=== PATIENT | male | born 1930 | race Caucasian/White ===

== ENCOUNTER 2018-09-23 18:30 | Observation (INO) | payer MEDICARE, MEDICAID ==
[2018-09-23] MEDS ORDERED: hydrALAZINE 20 MG/ML VIAL ONE (18:56)
[2018-09-23 19:06] LABS: Bilirubin Negative (Negative); Blood, Urine Negative (Negative); Clarity CLEAR (Clear); Glucose, Urine (Dipstick) Negative (Negative); Leukocyte Negative (Negative); Nitrite Negative (Negative); Protein, Urine (Dipstick) Negative (Neg-Trace); Specific Gravity, Urine 1.012 (1.002-1.036)
[2018-09-23] MEDS ORDERED: Ondansetron PF 4 MG/2 ML Vial IVP PRN (19:29)
[2018-09-23] MEDS ORDERED: Acetaminophen 650 MG Suppository PR PRN (19:29)
[2018-09-23] MEDS ORDERED: Acetaminophen 325 MG TAB PO PRN (19:29)
[2018-09-23] MEDS ORDERED: Ondansetron ODT 4 MG TAB PO PRN (19:29)
[2018-09-23] MEDS ORDERED: Famotidine/PF 20 mg/2ml Vial SLOW IVP SCH (21:00)
[2018-09-23] MEDS ORDERED: Montelukast Sodium 10 mg Tablet PO SCH (23:00)
[2018-09-23] MEDS ORDERED: Ubidecarenone 50 MG CAP PO SCH (23:00)
[2018-09-23] MEDS ORDERED: Famotidine 20 MG TAB PO SCH (23:00)
[2018-09-23] MEDS ORDERED: Atorvastatin Calcium 20 MG TAB PO SCH (23:00)
[2018-09-23] MEDS: Polyethylene Glycol OPTH DROP 15 ML BOT EA EYE PRN (23:02)
[2018-09-23] MEDS: Sodium Chloride 0.9% 1,000 ML IV SCH (23:11)
[2018-09-24 01:17] LABS: Troponin I Less than 0.010 ng/mL (< 0.028)
[2018-09-24] MEDS ORDERED: Levothyroxine Sodium 75 MCG TAB PO SCH (06:00)
[2018-09-24 06:04] LABS: Anion Gap 10 mmol/L (10-20); BUN (Urea Nitrogen) 13 mg/dL (8.4-25.7); Calc. Creatinine Clearance 71 mL/min (70-130); Calcium 9.1 mg/dL (7.8-10.44); Carbon Dioxide 27 mmol/L (23-31); Chloride 104 mmol/L (98-107); Estimated GFR-MDRD Greater than 90; Glucose 99 mg/dL (83-110); Potassium 3.6 mmol/L (3.5-5.1); Sodium 137 mmol/L (136-145)
[2018-09-24 06:21] LABS: #Basophils 0.1 thou/uL (0.0-0.2); #Eosinphils 0.1 thou/uL (0.0-0.7); #Lymphocytes 1.9 thou/uL (1.20-3.40); #Monocytes 0.6 thou/uL (0.11-0.59); #Neutrophils 2.8 thou/uL (1.40-6.50); %Basophils 1.1 % (0.0-1.0); %Eosinophils 2.5 % (0.0-10.0); %Lymphocytes 35.1 % (21.0-51.0); %Monocytes 11.1 % (0.0-10.0); %Neutrophils 50.1 % (42.0-75.0); Hemoglobin 12.3 g/dL (14.0-18.0); MDiff Complete? YES; Macrocytosis SLIGHT = 6-15 cells (100X) (0-5/hpf); Mean Corpuscular HGB CONC 32.4 g/dL (32.0-36.0); Mean Corpuscular Hemoglobin 35.5 pg (27.0-31.0); Mean Platelet Volume 8.5 fL (7.4-10.4); Platelet Count 139 thou/uL (130-400); RBC Distribution Width 13.1 % (11.5-14.5); Red Blood Cell (RBC) Count 3.46 mill/uL (4.70-6.10); White Blood Cell (WBC) Count 5.5 thou/uL (4.8-10.8)
[2018-09-24] MEDS: Polyethylene Glycol OPTH DROP 15 ML BOT EA EYE PRN (08:44)
[2018-09-24] MEDS ORDERED: Ubidecarenone 50 MG CAP PO SCH (09:00)
[2018-09-24] MEDS ORDERED: Citalopram 20 MG TAB PO SCH (09:00)
[2018-09-24] MEDS ORDERED: Famotidine 20 MG TAB PO SCH (09:00)
[2018-09-24] MEDS ORDERED: Aspirin 325 MG TAB PO SCH (09:00)
--- NOTE | 2018-09-24 09:06 | HP ---
REASON FOR ADMISSION: Vasovagal with near syncope. HISTORY OF PRESENT ILLNESS: Mr. Gaitan is a very pleasant 87-year-old man who presents after having what sounds like a vasovagal episode while sitting on the toilet causing a near syncopal episode. He reports feeling well in himself and recalls walking to the bathroom without any difficulty. Denies experiencing any shortness of breath, chest pain, or dizziness. He recalls sitting in the toilet to have bowel movement and then suddenly felt himself like falling forward and hitting the right side of his head on the floor. He sustained abrasions to the right side of his forehead and a laceration to the right ear. The patient denies any loss of consciousness and states he called out for help. He was taken to [facility] where he apparently complained of mild nausea, neck and back pain without any vomiting or headaches. The laceration to the right ear was repaired by the ED physician. The patient underwent investigations including an MRI of the brain, which demonstrated no acute intracranial abnormalities. He had a cervical spine CT done as well showing no acute fractures. He was noted to have degenerative arthritic type changes. The patient also underwent a chest x-ray which showed no acute cardiopulmonary process. He was transferred here for further investigation. The patient states he has been well doing for himself in recent days. States this has never happened before. Denies having any feelings of dizziness or lightheadedness whenever he stands or walks. Denies having any chest pain, palpitations, or shortness of breath. No abdominal pain or cramping. Has not had any recent colds, fevers, or chills. No cough or hemoptysis. No urinary symptoms. No bowel changes. All other review of systems is negative. The patient states he has been under a lot of stress recently due to having to place his in a snf. He states he had to be placed on Ativan p.r.n. by his primary care physician due to anxiety. PAST MEDICAL HISTORY: 1. Prostatitis. 2. Atrial fibrillation. 3. GERD. 4. Hyperlipidemia. 5. High cholesterol. 6. Coronary artery disease. 7. Hypertension. 8. CABG x5. 9. Pacemaker. 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 11. Depression. 12. Anxiety. The patient does not recall when exactly he had his last echo. He sees Dr. Werner regularly and states his appointment had been in the last 8 months to a year. PAST SURGICAL HISTORY: 1. Hemorrhoids. 2. Right carotid stent. 3. Cholecystectomy. 4. Coronary artery bypass graft x5. 5. Pacemaker placement. SOCIAL HISTORY: The patient denies any alcohol use or tobacco use. Denies any illicit drug use. He is totally independent. ALLERGIES: 1. CIPRO. 2. CLINDAMYCIN. 3. COMPAZINE. 4. ERYTHROMYCIN. 5. IODINE AND IODIDE-CONTAINING PRODUCTS. 6. PENICILLIN. 7. SULFA. CURRENT MEDICATIONS: 1. Coenzyme Q10. 2. Protonix. 3. Zofran. 4. Aspirin. 5. Singulair. 6. Ativan. 7. Synthroid. 8. DuoNeb. 9. Flonase. 10. Vitamin B12. 11. Celexa. 12. Lipitor. 13. Tylenol regular strength. PHYSICAL EXAMINATION: GENERAL: The patient appears well developed, well nourished, and is in no acute distress. He is resting comfortably on the stretcher. HEENT/NECK: Noted to have abrasions on the right side of his forehead and cheek. No bone deformities. No swelling or hematoma. He has a laceration to the right ear, involving the auricle. No discharge from either ear. No hearing disturbances. Pupils are equal, round, and reactive to light. Sclerae without icterus. Extraocular movements are intact and normal. No nystagmus present. Neck is supple. Mild discomfort with palpation of the cervical spine. No significant tenderness. No bone deformity. No point tenderness. Full range of motion. Oropharynx is clear; however, mucosa is dry. No sores. No injury or bleeding to his teeth or gums. CARDIAC: Regular rate and rhythm. No chest wall tenderness or deformity. LUNGS: Clear to auscultation bilaterally without any wheezes, rales, or rhonchi. ABDOMEN: Soft, nontender, nondistended. Normoactive bowel sounds present. EXTREMITIES: No lower leg edema or swelling. No calf tenderness. NEUROLOGIC: Alert and oriented x3. SKIN: Without rash or jaundice. LABORATORY DATA: White blood count 5.2, hemoglobin 12.3, hematocrit 38.8, and platelets 123. Sodium 137, potassium 3.8, chloride 100, carbon dioxide 29, anion gap 12, BUN 17, creatinine 1.03, GFR 69, glucose 104, calcium 9.2, total bilirubin 0.6, AST 15, ALT less than 7, alkaline phosphatase 41. Troponin I 0.016. BNP 459. Albumin 4.9. Urinalysis negative. IMAGING DATA: As mentioned above in the HPI. IMPRESSION AND PLAN: Mr. Gaitan is a very pleasant 87-year-old man who is being admitted for management of the followin. Presyncope. The patient may have possibly had a vasovagal episode as this occurred suddenly when he was bearing down to have a bowel movement. He had no preceding symptoms and has had no symptoms since. He did not have loss of consciousness. 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 We will obtain a printout from pacemaker. The patient does have an elevated BNP from baseline. No signs of fluid overload or edema. He does not recall when his last echo was and feels it may have been in the last 8 months to year. Repeat echo has been requested. We will obtain results of the most recent echo which may have been done in clinic with Dr. Werner who is his denial resolution specialist. Last echo on file is from November 2015, at which time he had a normal ejection fraction of 55% to 60% with mild mitral regurgitation/tricuspid regurgitation and mild aortic stenosis/aortic regurgitation . A very small pericardial effusion noted at that time. We will continue to monitor patient and continue to trend troponins. Orthostatic blood pressures have been requested. 2. Head injury. Continue to monitor. No loss of consciousness or vomiting. No headaches. No focal neurology. CT brain was negative for acute intracranial abnormality. 3. Hypothyroidism. Resume home medication. Check TSH level with morning labs. 4. Gastrointestinal prophylaxis. 5. Deep venous thrombosis prophylaxis with mechanical SCDs. 6. Code status: DNAR. His surrogate decision maker is his son, Rich Gaitan. The patient's case was discussed with Dr. Anaya who agrees with plan of care as described above. Job ID: [id number] MTDD
[2018-09-24 12:55] VITALS: BMI 23.1
[2018-09-24] MEDS: Sodium Chloride 0.9% 1,000 ML IV SCH (13:35)
--- NOTE | 2018-09-24 15:50 | PDOC.PN ---
- Subjective Encounter Start Date: 09/24/18 Encounter Start Time: 15:49 Patient lying in bed he denies chest pain, palpitations, shortness of breath. Orthostatic vitals are positive at this time. Echo results pending - Objective Resuscitation Status - Order Detail: 09/23/18 19:29 Resuscitation Status Routine Co-Sign Provider: Resuscitation Status: DNAR: NO Resuscitation Discussed with: Patient MAR Reviewed: Yes Vital Signs & Weight: Vital Signs (12 hours) Temp Pulse Pulse Pulse Resp BP BP 09/24/18 13:20 80 134/70 09/24/18 12:03 09/24/18 11:43 97.7 F 84 18 09/24/18 11:10 78 88 161/72 H 164/82 H 09/24/18 07:02 97.6 F 73 20 09/24/18 04:29 97.5 F L 71 22 H BP BP BP BP Pulse Ox Pulse Ox 09/24/18 13:20 09/24/18 12:03 179/71 H 148/63 H 140/64 09/24/18 11:43 98 09/24/18 11:10 96 09/24/18 07:02 156/70 H 95 09/24/18 04:29 145/65 H 96 Weight Admit Weight 151 lb 8 oz Weight 152 lb 4.8 oz I&O: 09/23/18 09/24/18 09/25/18 06:59 06:59 06:59 Intake Total 538 600 Output Total 650 150 Balance -112 450 Result Diagrams: 09/24/18 04:54 09/24/18 04:54 Radiology Reviewed by me: Yes EKG Reviewed by me: Yes Phys Exam - Physical Examination Constitutional: NAD HEENT: moist MMs, oral pharynx no lesions Neck: supple Respiratory: no wheezing, clear to auscultation bilateral Cardiovascular: RRR Gastrointestinal: soft, no distention, positive bowel sounds Musculoskeletal: no edema, pulses present Neurological: normal sensation, moves all 4 limbs Lymphatic: no nodes Psychiatric: normal affect, A&O x 3 Skin: cap refill <2 seconds Dx/Plan (1) Orthostatic hypotension Code(s): I95.1 - ORTHOSTATIC HYPOTENSION Status: Acute (2) Hypothyroid Code(s): E03.9 - HYPOTHYROIDISM, UNSPECIFIED Status: Acute (3) Near syncope Status: Acute (4) CAD (coronary artery disease) Code(s): I25.10 - ATHSCL HEART DISEASE OF [place] CORONARY ARTERY W/O ANG PCTRS Status: Chronic (5) HTN (hypertension) Code(s): I10 - ESSENTIAL (PRIMARY) HYPERTENSION Status: Chronic (6) Status post biventricular pacemaker Code(s): Z95.0 - PRESENCE OF CARDIAC PACEMAKER Status: Chronic - Plan cont current plan of care, PT/OT * Orthostatic vitals positive, continue gentle hydration * Echo results pending * Continue current medical management * T4 within normal limits, continue home synthroid * PT recommend discharge home with no further need for PT * If echo normal, patient can likely discharge home
[2018-09-24 16:09] VITALS: BP 136/68; TEMP 98.5
[2018-09-24] MEDS ORDERED: Montelukast Sodium 10 mg Tablet PO SCH (21:00)
[2018-09-24] MEDS ORDERED: Atorvastatin Calcium 20 MG TAB PO SCH (21:00)
== END 2018-09-24 18:27 | disposition home or self-care (01) ==
LOC: ERS 18:30 → 2SW 21:50
PROVIDERS: ADMIT Emergency Medicine; ATTEND Emergency Medicine
DX: R55 Syncope and collapse (principal); F32.9 Major depressive disorder, single episode, unspecified; F41.8 Other specified anxiety disorders; E78.5 Hyperlipidemia, unspecified; E03.9 Hypothyroidism, unspecified; E78.00 Pure hypercholesterolemia, unspecified; K21.9 Gastro-esophageal reflux disease without esophagitis; I48.91 Unspecified atrial fibrillation; N41.9 Inflammatory disease of prostate, unspecified; I25.10 Atherosclerotic heart disease of native coronary artery without angina pectoris; I10 Essential (primary) hypertension; I25.2 Old myocardial infarction; Z79.899 Other long term (current) drug therapy; Z79.82 Long term (current) use of aspirin; Z79.51 Long term (current) use of inhaled steroids; Z88.0 Allergy status to penicillin; Z88.1 Allergy status to other antibiotic agents; Z88.2 Allergy status to sulfonamides; Z88.8 Allergy status to other drugs, medicaments and biological substances; Z91.041 Radiographic dye allergy status; Z95.0 Presence of cardiac pacemaker; Z95.1 Presence of aortocoronary bypass graft
CPT/HCPCS: 80048; 81003; 82274; 84439; 84443; 84484 ×2; 85025; 93306; 96361 ×2; 96374; 97116; 97139 ×3; 99285; G0378 ×2; 36415; J0360

== ENCOUNTER 2020-02-04 18:18 | Inpatient (IN) | payer MEDICARE, MEDICAID, OTHER ==
--- NOTE | 2020-02-04 21:24 | PDOC.HHP ---
Hospitalist HPI - History of Present Illness shortness of breath History of Present Illness: Patient is an 89 year old male with PMH HLD, CAD, HTN, 5v CABG, pacemaker, hypothyroidism transferred from [facility] for shortness of breath. Patient went to PCP after several days of worsening shortness of breath and found to be hypoxic in 80s, sent to ED for further evaluation, there found to have overload w/ crackles on physical exam, elevated BNP, edema on x ray. Vitals were hypertensive and tachypneic, EKG no STEMI w/ nonspecific T wave changes, patient was given lasix, nitropatch and transferred for further evaluation and care. patient denies chest pain, palpitations, edema. never had these kinds of symptoms before. 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 most recent echo in chart reviewed from 2019, ef 55% w/ some mild-moderate valve disease. he already feels better after lasix at outside hospital. Hospitalist ROS - Review of Systems Constitutional: denies: fever, chills, sweats, weakness, malaise, other Eyes: denies: pain, vision change, conjunctivae inflammation, eyelid inflammation, redness, other ENT: denies: ear pain, ear discharge, nose pain, nose discharge, nose congestion , mouth pain, mouth swelling, throat pain, throat swelling, other Respiratory: reports: shortness of breath, SOB with excertion. denies: cough, dry, hemoptysis, pleuritic pain, sputum, wheezing, other Cardiovascular: denies: chest pain, palpitations, orthopnea, paroxysmal noc. dyspnea, edema, light headedness, other Gastrointestinal: denies: nausea, vomiting, abdominal pain, diarrhea, constipation, melena, hematochezia, other Genitourinary: denies: dysuria, frequency, incontinence, hematuria, retention, other Musculoskeletal: denies: neck pain, shoulder pain, arm pain, back pain, hand pain, leg pain, foot pain, other Skin: denies: rash, lesions, armani, bruising, other Neurological: denies: weakness, numbness, incoordination, change in speech, confusion, seizures, other All other systems reviewed; all pertinent +/- noted in HPI/Subj - Medication Medications: reviewed, see transfer documents for list Hospitalist History - Past Medical History Other Medical History: HLD, CAD, HTN, 5v CABG, pacemaker, hypothyroidism - Past Surgical History Other Surgical History: appendectomy, hemorrhoid surgery, carotid stent, cholecystectomy, CABG x 5v, pacemaker - Family History Family History: reports: no pertinent history - Social History Smoking Status: Former smoker - Exam General Appearance: NAD, awake alert Eye: PERRL, anicteric sclera ENT: normocephalic atraumatic, no oropharyngeal lesions, moist mucosa Neck: supple, symmetric, no JVD, no thyromegaly, no lymphadenopathy, no carotid bruit Heart: RRR, no murmur, no gallops, no rubs, normal peripheral pulses Respiratory: CTAB, normal chest expansion, no tachypnea, normal percussion Respiratory - other findings: dependant crackles Gastrointestinal: soft, non-tender, non-distended, normal bowel sounds, no palpable masses, no hepatomegaly, no splenomegaly, no bruit Extremities: no cyanosis, no clubbing, no edema Skin: normal turgor, no lesions, no rashes Neurological: cranial nerve grossly intact, normal sensation to touch, no weakness, no focal deficits, no new deficit Musculoskeletal: normal tone, normal strength, no muscle wasting Psychiatric: normal affect, normal behavior, A&O x 3 Hospitalist Results - Labs Additional comment: Vital signs, labs, imaging reports, outside documents, old echo reports reviewed CXR: impression: mild decompensated CHF Echo from 2018 w/ ef 55% mild-moderate valve disease Hospitalist H&P A/P - Plan Plan: Patient is an 89 year old male with PMH HLD, CAD, HTN, 5v CABG, pacemaker, hypothyroidism transferred from [facility] for shortness of breath. # acute diastolic CHF - first time patient experiencing significant CHF symptoms, most recent echo in chart reviewed from 2018, ef 55% w/ some mild- moderate valve disease - admit to telemetry - consult cardiology - continue lasix, asa, statin - I/Os # history of HLD, CAD, CABG, HTN, pacemaker - continue home meds # hypothyroidism - continue synthroig DVT/GI ppx
[2020-02-04] MEDS ORDERED: HYDROcodone/Acetaminophen 5/325 mg Tablet PO PRN (21:26)
[2020-02-04] MEDS ORDERED: hydrALAZINE 20 MG/ML VIAL SLOW IVP PRN (21:26)
[2020-02-04] MEDS ORDERED: Labetalol HCl 100 MG/20 ML VIAL SLOW IVP PRN (21:26)
[2020-02-04] MEDS ORDERED: Promethazine HCl 12.5 MG in Sodium Chloride 0.9% 50 ML IVPB PRN (21:26)
[2020-02-04] MEDS ORDERED: Lorazepam 1 MG TAB PO PRN (21:28)
[2020-02-04] MEDS ORDERED: Nitroglycerin 0.4 MG TAB (25 Tab Bottle) SL PRN (21:28)
[2020-02-04] MEDS ORDERED: Electrolyte Replacement Protoc 1 EACH EACH FS PRN (21:30)
[2020-02-04 22:21] VITALS: BMI 22.4
[2020-02-05] MEDS: SYSTANE GEL OPHTH DROPS 10 ML OP PRN ×3 (00:31→20:16)
[2020-02-05] MEDS: Acetaminophen 325 MG TAB PO PRN ×2 (01:53→23:23)
[2020-02-05 04:39] LABS: Anion Gap 13 mmol/L (10-20); BUN (Urea Nitrogen) 13 mg/dL (8.4-25.7); Calc. Creatinine Clearance 60 mL/min (70-130); Calcium 9.1 mg/dL (7.8-10.44); Carbon Dioxide 31 mmol/L (23-31); Chloride 96 mmol/L (98-107); Estimated GFR-MDRD 89; Glucose 100 mg/dL (83-110); Magnesium 1.7 mg/dL (1.6-2.6); Potassium 3.8 mmol/L (3.5-5.1); Sodium 136 mmol/L (136-145)
[2020-02-05 04:40] LABS: #Eosinphils 0.1 thou/uL (0.0-0.7); #Lymphocytes 1.4 thou/uL (1.20-3.40); #Monocytes 0.9 thou/uL (0.11-0.59); #Neutrophils 3.7 thou/uL (1.40-6.50); %Basophils 0.7 % (0.0-1.0); %Eosinophils 1.8 % (0.0-10.0); %Lymphocytes 22.8 % (21.0-51.0); %Monocytes 13.9 % (0.0-10.0); %Neutrophils 60.8 % (42.0-75.0); MDiff Complete? YES; Macrocytosis SLIGHT = 6-15 cells (100X) (0-5/hpf); Mean Corpuscular HGB CONC 32.3 g/dL (32.0-36.0); Mean Corpuscular Hemoglobin 35.6 pg (27.0-31.0); Mean Platelet Volume 7.3 fL (7.4-10.4); Platelet Count 191 thou/uL (130-400); RBC Distribution Width 13.5 % (11.5-14.5); Red Blood Cell (RBC) Count 3.37 mill/uL (4.70-6.10); White Blood Cell (WBC) Count 6.1 thou/uL (4.8-10.8)
[2020-02-05] MEDS: Levothyroxine Sodium 75 MCG TAB PO SCH (06:30)
[2020-02-05] MEDS: Citalopram 20 MG TAB PO SCH (08:25)
[2020-02-05] MEDS: Furosemide 40 MG/4 ML VIAL SLOW IVP SCH (08:25)
[2020-02-05] MEDS: Famotidine 20 MG TAB PO SCH ×2 (08:25→20:15)
[2020-02-05] MEDS: Aspirin Chewable 81 MG TAB PO SCH (08:25)
[2020-02-05] MEDS: cloNIDine 0.1 MG TAB PO PRN (08:25)
[2020-02-05] MEDS: Cyanocobalamin (Vitamin B-12) 1,000 MCG TAB PO SCH (08:25)
[2020-02-05] MEDS: Fluticasone Propionate Nasal Spray 16 gm Bottle NASAL SCH ×2 (08:26→20:16)
[2020-02-05] MEDS ORDERED: FLU VACC QS2020-21(65YR UP)/PF 240 MCG/0.7 ML SYRINGE IM ONE (09:00)
--- NOTE | 2020-02-05 13:03 | CON ---
DATE OF CONSULTATION: 02/05/2020 ADMITTING PHYSICIAN: Hospitalist Service. CONSULTING PHYSICIAN: Ramón Anton MD, Cardiology. REASON FOR CONSULTATION: Acute CHF. PRIMARY FURNACE ROOM SUPERVISOR: Jean Werner MD HISTORY OF PRESENT ILLNESS: Mr. Gaitan is an 89-year-old male with a past medical history of coronary artery disease, status post CABG x5 in the past, mild aortic stenosis, [id number] MR, hypertension, hyperlipidemia, and previous pacemaker placement, who presented to the [facility] in acute heart failure. The patient had been previously seen by Dr. Werner in the office on 01/19, with a similar complaint of shortness of breath. Outpatient echocardiogram was ordered, but has not been completed at this time. No medication adjustments were done at that time. He did have a pacemaker check that day, which showed normal device function and no arrhythmias. The patient says that his symptoms gradually became worse. He presented to the [facility] and his BNP was greater than 1700. Chest x-ray showed acute congestive heart failure. He was given IV Lasix and transferred to our facility. Currently, he says he is feeling much better overall. Again, the patient has a history of coronary artery disease, status post CABG x5 I believe in the year 1999. He has been managed by Dr. Werner as an outpatient. Of note, on his 12-lead EKG at admission, he does have a left bundle, which is fairly new for him. Reviewing his old EKGs from 2018, the patient did have a QRS that was starting to widen at that time, but was not complete. PAST MEDICAL HISTORY: Hypertension; hyperlipidemia; coronary artery disease, status post previous CABG x5; hypothyroidism; bradycardia; carotid artery disease; seasonal allergies. PAST SURGICAL HISTORY: Appendectomy, hemorrhoid surgery, carotid stent placement, cholecystectomy, CABG x5, and pacemaker implant. FAMILY HISTORY: Noncontributory. SOCIAL HISTORY: The patient is a former smoker. No heavy alcohol abuse. ALLERGIES: CIPRO, ERYTHROMYCIN, IODINE, PENICILLIN, SULFA DRUGS, REGLAN. MEDICATIONS: At-home medications, 1. Coenzyme Q10 once a day. 2. Livalo 4 mg at bedtime. 3. Protonix 40 mg daily. 4. Zofran as needed. 5. Nitrostat p.r.n. 6. Singulair 10 mg at bedtime. 7. Ativan 1 mg p.r.n. 8. Synthroid 75 mcg daily. 9. Flonase b.i.d. 10. Vitamin B12 daily. 11. Celexa 40 mg daily. 12. Aspirin 81 mg daily. REVIEW OF SYSTEMS: In general, a 10-point review of systems was discussed with the patient and is negative except for HPI and past medical history mentioned above. PHYSICAL EXAMINATION: GENERAL: This is a pleasant elderly male, who is in no acute distress. He is lying in bed flat and resting comfortably. NEUROLOGIC: He is alert, awake, and oriented x3. VITAL SIGNS: Stable. I's and O's -1300 cc. Weight is 146 pounds, which is down 1 pound from previous weight. HEENT: Head is atraumatic, normocephalic. Mucous membranes are moist. NECK: Supple. No JVD or bruits noted. CHEST: Clear bilaterally. CARDIOVASCULAR: Regular rate and rhythm with normal S1, S2. He has a 2/6 systolic murmur at his apex. ABDOMEN: Nontender to palpation. EXTREMITIES: Show no clubbing, cyanosis, or edema. SKIN: Warm and dry. PSYCHIATRIC: Mood and affect are appropriate. MUSCULOSKELETAL: Not fully assessed. LABORATORY DATA: CBC shows the patient to be mildly macrocytic anemic. BMP is essentially normal. Troponins are normal. Telemetry, the patient is in normal sinus rhythm. He has intermittent atrial pacing. IMPRESSION: 1. Acute congestive heart failure, unknown etiology. 2. History of mild aortic stenosis. 3. Coronary artery disease, status post CABG x5 in the past. 4. Hypertension. 5. Hyperlipidemia. 6. Left bundle branch block. 7. Status post pacemaker placement. At this time, we will continue the IV Lasix that has been started by the hospitalist team. He had an echocardiogram done this morning, which we will review to determine if his EF is changed or valvular status is changed. He had a recent normal pacemaker interrogation. He did have a stress test done in 2019, which showed no ischemia and mild hypokinesis with EF of 48% at that time. I will hold off ordering stress for now until echo is reviewed. The patient understands and agrees with plan of care. Job ID: [id number]
--- NOTE | 2020-02-05 13:56 | PDOC.HOSPP ---
- Subjective Encounter Date: 02/05/20 Encounter Time: 13:54 Subjective: Mr. Gaitan was seen today in follow-up of respiratory failure. He says he is breathing better today. He says he last saw Dr. Werner about 3 weeks ago. He says since then he breathing has gone down. - Objective Vital Signs & Weight: Vital Signs (12 hours) Temp Pulse Resp BP Pulse Ox 02/05/20 12:19 97.8 F 74 16 98/58 L 93 L 02/05/20 08:25 92 L 02/05/20 08:17 98.7 F 89 16 179/86 H 92 L 02/05/20 04:00 97.8 F 86 15 132/60 92 L Weight Weight 146 lb 1.6 oz I&O: 02/04/20 02/05/20 02/06/20 06:59 06:59 06:59 Intake Total 200 Output Total 1500 Balance -1300 Result Diagrams: 02/05/20 03:56 02/05/20 03:56 Hospitalist ROS - Medication Medications: Active Medications Generic Name Dose Route Start Last Admin Trade Name Freq PRN Reason Stop Dose Admin Acetaminophen 650 mg 02/04/20 21:26 02/05/20 01:53 Acetaminophen 325 Mg Tab PO 650 mg Q4H PRN Administration Headache/Fever/Mild Pain (1-3) Aspirin 81 mg 02/05/20 09:00 02/05/20 08:25 Aspirin Chewable 81 Mg Tab PO 81 mg DAILY JOCELYN Administration Citalopram Hydrobromide 40 mg 02/05/20 09:00 02/05/20 08:25 Citalopram 20 Mg Tab PO 40 mg DAILY JOCELYN Administration Clonidine 0.1 mg 02/04/20 21:26 02/05/20 08:25 Clonidine 0.1 Mg Tab PO 0.1 mg BIDPRN PRN Administration SBP > 160, use second Cyanocobalamin 1,000 mcg 02/05/20 09:00 02/05/20 08:25 Cyanocobalamin (Vitamin B-12) 1,000 Mcg Tab PO 1,000 mcg DAILY JOCELYN Administration Famotidine 20 mg 02/05/20 09:00 02/05/20 08:25 Famotidine 20 Mg Tab PO 20 mg BID JOCELYN Administration Fluticasone Propionate 0 gm 02/05/20 09:00 02/05/20 08:26 Fluticasone Propionate Nasal [place] 16 Gm Bottle NASAL 1 spr BID JOCELYN Administration Furosemide 40 mg 02/05/20 09:00 02/05/20 08:25 Furosemide 40 Mg/4 Ml Vial SLOW IVP 40 mg DAILY JOCELYN Administration Levothyroxine Sodium 75 mcg 02/05/20 06:00 02/05/20 06:30 Levothyroxine Sodium 75 Mcg Tab PO 75 mcg 0600 JOCELYN Administration Pantoprazole Sodium 40 mg 02/05/20 09:00 02/05/20 08:25 Pantoprazole 40 Mg Tab PO 40 mg DAILY JOCELYN Administration Propylene Glycol 1 ml 02/04/20 21:28 02/05/20 08:25 Systane Gel Ophth Drops 10 Ml OP 1 drop PRN PRN Administration Dry Eyes - Exam General Appearance: NAD Eye: PERRL, anicteric sclera ENT: normocephalic atraumatic, no oropharyngeal lesions Heart: RRR, no gallops, murmur present, II/IV Respiratory: no wheezes, no ronchi, rales (+ bibasilar rales) Gastrointestinal: soft, non-tender, non-distended, normal bowel sounds, no palpable masses, no hepatomegaly Extremities: no cyanosis, no clubbing, no edema Hosp A/P (1) Acute on chronic combined systolic and diastolic CHF, NYHA class 2 Code(s): I50.43 - ACUTE ON CHRONIC COMBINED SYSTOLIC AND DIASTOLIC HRT FAIL Status: Acute (2) CAD (coronary artery disease) Code(s): I25.10 - ATHSCL HEART DISEASE OF [place] CORONARY ARTERY W/O ANG PCTRS Status: Chronic (3) Acute respiratory failure Code(s): J96.00 - ACUTE RESPIRATORY FAILURE, UNSP W HYPOXIA OR HYPERCAPNIA Status: Acute (4) Aortic stenosis Code(s): I35.0 - NONRHEUMATIC AORTIC (VALVE) STENOSIS Status: Acute (5) HTN (hypertension) Code(s): I10 - ESSENTIAL (PRIMARY) HYPERTENSION Status: Chronic - Plan * Acute on chronic systolic and diastolic heart failure- continue LAsix IV. clinically he is still fluid overloaded. * Echo results noted. He may have had a slight decline in LV function. It is als o noted he has Aortic Stenosis- will await further recommendations from Cardiology * HTN- blood pressure is very labile- will monitor * CAD- stable
[2020-02-05 15:25] LABS: SARS-CoV-2 MS2 Positive; SARS-CoV-2 N Gene Negative; SARS-CoV-2 S Gene Negative; SARS-CoV-2 by NAA Not Detected (NotDetected); SARS-CoV-2 orf1ab Negative
--- NOTE | 2020-02-05 17:28 | CON ---
DATE OF CONSULTATION: 02/05/2020 INDICATIONS FOR CONSULTATION: An 89-year-old gentleman with CHF exacerbation. HISTORY OF PRESENT ILLNESS: Please refer to the notes dictated by the nurse practitioner, Dayanna Nuñez. Mr. Gaitan is a very pleasant 89-year-old gentleman who has undergone pacemaker insertion in the past. He has had a history of aortic valve stenosis and has had also history of hypertension and also has had pacemaker placement. He does not appear to be pacemaker dependent in the ventricle. He does pace in the atrium. He has developed a left bundle-branch block apparently. This is relatively new since previous EKGs. He presented to the hospital after he became increasingly shortness of breath recently. He has been given IV Lasix and has diuresed. His BNP was 1770. He is feeling somewhat better after he has diuresed about 1500 mL, he has 1300 mL negative since yesterday. His laboratory data did not show any indication of myocardial infarction. He denied any chest pain. Mainly just shortness of breath. Please refer to the notes dictated by the physician cafeteria assistant for his past medical history, social history, family history, review of systems, allergies, and medications. PHYSICAL EXAMINATION: I have seen the patient and would agree with the assessment on the patient and the plan. IMPRESSION: 1. Congestive heart failure exacerbation. Review of the echocardiogram does show severe aortic valve stenosis. He may need to undergo further evaluation for the aortic valve replacement. He may be a candidate for a transaortic valve replacement. He will need to be evaluated for progression of coronary artery disease. His bypass surgery was approximately 10 years ago. He has not had any recent stress test that I can see. He may need to undergo stress testing or may just need to proceed with a cardiac catheterization and evaluate the aortic valve at the same time. This may be the etiology of the worsening of his congestive heart failure with his severe aortic valve stenosis. 2. Status post pacemaker insertion. The pacemaker seems to be working adequately. The last review of the pacemaker in the office was recently, which showed a normal function on the pacemaker with good longevity, still on the battery. 3. History of peripheral vascular disease or carotid artery stenosis. This appears also to be stable. We dealt with as needed. 4. Hypercholesterolemia. Would continue his present medications. 5. Hypertension. The blood pressure at this time was actually relatively elevated at 179/86 and then now has decreased this afternoon around noon time to 98/58. We will need to recheck the blood pressure to ensure that this has been stable. Certainly, we would not expect a drop of 179/86 down to /. We will review his medications. Please refer to the dictation by the nurse practitioner for his list of medications. We will be more than happy to continue to follow the patient with you throughout his hospital course. We will keep the patient n.p.o. on Friday night for possible cardiac catheterization on Friday. Job ID: [id number]
[2020-02-05] MEDS: Montelukast Sodium 10 mg Tablet PO SCH (20:14)
[2020-02-05] MEDS: Atorvastatin Calcium 40 MG TAB PO SCH (20:14)
[2020-02-05] MEDS ORDERED: Enoxaparin Sodium 40 MG/0.4 ML SYRINGE SC SCH (21:00)
[2020-02-06] MEDS: Levothyroxine Sodium 75 MCG TAB PO SCH (05:00)
[2020-02-06 08:42] LABS: #Basophils 0.1 thou/uL (0.0-0.2); #Eosinphils 0.2 thou/uL (0.0-0.7); #Lymphocytes 1.1 thou/uL (1.20-3.40); #Monocytes 0.4 thou/uL (0.11-0.59); #Neutrophils 3.1 thou/uL (1.40-6.50); %Basophils 1.1 % (0.0-1.0); %Eosinophils 3.7 % (0.0-10.0); %Lymphocytes 22.1 % (21.0-51.0); %Neutrophils 64.2 % (42.0-75.0); Hemoglobin 12.7 g/dL (14.0-18.0); Mean Corpuscular HGB CONC 32.7 g/dL (32.0-36.0); Mean Corpuscular Hemoglobin 35.6 pg (27.0-31.0); Mean Platelet Volume 7.9 fL (7.4-10.4); Platelet Count 193 thou/uL (130-400); RBC Distribution Width 13.5 % (11.5-14.5); Red Blood Cell (RBC) Count 3.56 mill/uL (4.70-6.10); White Blood Cell (WBC) Count 4.9 thou/uL (4.8-10.8)
[2020-02-06 08:59] LABS: Anion Gap 12 mmol/L (10-20); BUN (Urea Nitrogen) 13 mg/dL (8.4-25.7); Calc. Creatinine Clearance 64 mL/min (70-130); Calcium 9.3 mg/dL (7.8-10.44); Carbon Dioxide 31 mmol/L (23-31); Chloride 95 mmol/L (98-107); Estimated GFR-MDRD Greater than 90; Glucose 131 mg/dL (83-110); Potassium 3.7 mmol/L (3.5-5.1); Sodium 134 mmol/L (136-145)
[2020-02-06] MEDS: Aspirin Chewable 81 MG TAB PO SCH (09:22)
[2020-02-06] MEDS: Furosemide 40 MG/4 ML VIAL SLOW IVP SCH (09:22)
[2020-02-06] MEDS: Cyanocobalamin (Vitamin B-12) 1,000 MCG TAB PO SCH (09:22)
[2020-02-06] MEDS: Citalopram 20 MG TAB PO SCH (09:22)
[2020-02-06] MEDS: Famotidine 20 MG TAB PO SCH ×2 (09:22→21:59)
[2020-02-06] MEDS: SYSTANE GEL OPHTH DROPS 10 ML OP PRN ×3 (09:23→22:00)
[2020-02-06] MEDS: Fluticasone Propionate Nasal Spray 16 gm Bottle NASAL SCH ×2 (09:23→21:59)
--- NOTE | 2020-02-06 11:12 | PDOC.CPN ---
- Subjective Date: 02/06/20 Time: 11:11 Interval history: Patient without complaints. Overall feels fine. No CP, SOB. - Review of Systems General: denies: fever/chills, weight/appetite/sleep changes, night sweats, fatigue Respiratory: denies: cough, congestion, shortness of breath, exercise intolerance Cardiovascular: denies: chest pain, palpitation, edema, paroxysmal nocturnal dyspnea, orthopnea Gastrointestinal: denies: nausea, vomiting, diarrhea, constipation, abd pain, GI bleeding Musculoskeletal: denies: pain, tenderness, stiffness, swelling, ar thritis/arthralgias Neurological: denies: numbness, syncope, seizure, weakness - Objective Allergies/Adverse Reactions: Allergies Allergy/AdvReac Type Severity Reaction Status Date / Time ciprofloxacin Allergy Unknown Rash Verified 02/04/20 20:53 erythromycin base Allergy Unknown Rash Verified 02/04/20 20:53 [Erythromycin Base] iodine Allergy Unknown Rash Verified 02/04/20 20:53 Penicillins Allergy Unknown Rash Verified 02/04/20 20:53 Sulfa (Sulfonamide Allergy Unknown Rash Verified 02/04/20 20:53 Antibiotics) metoclopramide Allergy Rash Verified 02/04/20 20:53 prochlorperazine Allergy Rash Verified 02/04/20 20:53 Visit Medications: Current Medications Acetaminophen (Acetaminophen 325 Mg Tab) 650 mg PO Q4H PRN PRN Reason: Headache/Fever/Mild Pain (1-3) Last Admin: 02/05/20 23:23 Dose: 650 mg Documented by: Hydrocodone Bitart/Acetaminophen (Hydrocodone/Acetaminophen 5/325 Mg Tablet) 1 tab PO Q4H PRN PRN Reason: Moderate Pain (4-6) Albuterol/Ipratropium (Ipratropium/Albuterol Sulfate 3 Ml Neb) 3 ml NEB Q2H PRN PRN Reason: SOB &/or Wheezing Aspirin (Aspirin Chewable 81 Mg Tab) 81 mg PO DAILY [facility] Last Admin: 02/06/20 09:22 Dose: 81 mg Documented by: Atorvastatin Calcium (Atorvastatin Calcium 40 Mg Tab) 40 mg PO HS [facility] Last Admin: 02/05/20 20:14 Dose: 40 mg Documented by: Citalopram Hydrobromide (Citalopram 20 Mg Tab) 40 mg PO DAILY [facility] Last Admin: 02/06/20 09:22 Dose: 40 mg Documented by: Clonidine (Clonidine 0.1 Mg Tab) 0.1 mg PO BIDPRN PRN PRN Reason: SBP > 160, use second Last Admin: 02/05/20 08:25 Dose: 0.1 mg Documented by: Cyanocobalamin (Cyanocobalamin (Vitamin B-12) 1,000 Mcg Tab) 1,000 mcg PO DAILY [facility] Last Admin: 02/06/20 09:22 Dose: 1,000 mcg Documented by: Enoxaparin Sodium (Enoxaparin Sodium 40 Mg/0.4 Ml Syringe) 40 mg SC 2100 [facility] Last Admin: 02/05/20 20:15 Dose: 40 mg Documented by: Famotidine (Famotidine 20 Mg Tab) 20 mg PO BID [facility] Last Admin: 02/06/20 09:22 Dose: 20 mg Documented by: Fluticasone Propionate (Fluticasone Propionate Nasal [place] 16 Gm Bottle) 0 gm NASAL BID [facility] Last Admin: 02/06/20 09:23 Dose: 2 spr Documented by: Furosemide (Furosemide 40 Mg/4 Ml Vial) 40 mg SLOW IVP DAILY [facility] Last Admin: 02/06/20 09:22 Dose: 40 mg Documented by: Hydralazine HCl (Hydralazine 20 Mg/Ml Vial) 10 mg SLOW IVP Q6H PRN PRN Reason: SBP GREATER THAN 160 Promethazine HCl 12.5 mg/ (Sodium Chloride) 50.5 mls @ 202 mls/hr IVPB Q6H PRN PRN Reason: Nausea/vomiting, use second Labetalol HCl (Labetalol Hcl 100 Mg/20 Ml Vial) 20 mg SLOW IVP Q4H PRN PRN Reason: SBP > 160, use third Levothyroxine Sodium (Levothyroxine Sodium 75 Mcg Tab) 75 mcg PO 0600 [facility] Last Admin: 02/06/20 05:00 Dose: 75 mcg Documented by: Lorazepam (Lorazepam 1 Mg Tab) 1 mg PO HSPRN PRN PRN Reason: Anxiety Montelukast Sodium (Montelukast Sodium 10 Mg Tablet) 10 mg PO HS [facility] Last Admin: 02/05/20 20:14 Dose: 10 mg Documented by: Nitroglycerin (Nitroglycerin 0.4 Mg Tab (25 Tab Bottle)) 0.4 mg SL Q5MIN PRN PRN Reason: Chest Pain Ondansetron HCl (Ondansetron Pf 4 Mg/2 Ml Vial) 4 mg IVP Q6H PRN PRN Reason: Nausea/Vomiting, use 1st Pantoprazole Sodium (Pantoprazole 40 Mg Tab) 40 mg PO DAILY [facility] Last Admin: 02/06/20 09:22 Dose: 40 mg Documented by: Propylene Glycol (Systane Gel Ophth Drops 10 Ml) 1 ml OP PRN PRN PRN Reason: Dry Eyes Last Admin: 02/06/20 09:23 Dose: 1 drop Documented by: Vital Signs & Weight: Vital Signs Temp Pulse Resp BP Pulse Ox 02/06/20 07:31 97.2 F L 75 14 160/74 H 94 L 02/06/20 04:51 97.6 F 77 20 132/60 93 L 02/05/20 23:24 83 20 138/75 95 Weight 146 lb 9.6 oz - Physical Exam General: alert & oriented x3, appears well, no apparent distress HEENT: mucus membranes moist Neck: supple neck Cardiac: regular rate and rhythm Lungs: clear to auscultation Neuro: grossly intact Abdomen: soft, non-tender Extremities: no edema Skin: clear Musculoskeletal: no pain - Labs Result Diagrams: 02/06/20 08:21 02/06/20 08:21 Troponin/CKMB Troponin I 0.010 ng/mL (< 0.028) 02/05/20 03:56 - Assessment/Plan Assessment/Plan: 1. Acute systolic CHF 2. Severe on ECHO 3. 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 HTN 5. LBBB 6. s/p pacemaker Will stop IV lasix. Add low dose Coreg. Plan for possible angio tomorrow with Dr. Werner returning. Pt. seen and eval. by me. I agree with the A/P by the PA. Will keep npo tonight for possible cath in AM. Chest clear. murmur. gjm
[2020-02-06] MEDS ORDERED: Enoxaparin Sodium 40 MG/0.4 ML SYRINGE SC SCH (11:30)
--- NOTE | 2020-02-06 12:40 | PDOC.HOSPP ---
- Subjective Encounter Date: 02/06/20 Encounter Time: 12:38 Subjective: Mr. Gaitan was seen today in follow-up of CHF exacerbation. He is sitting up in bed eating. He denies feeling short of breath. He denies any chest pain. - Objective Vital Signs & Weight: Vital Signs (12 hours) Temp Pulse Resp BP Pulse Ox 02/06/20 11:43 96.7 F L 77 18 117/63 94 L 02/06/20 07:31 97.2 F L 75 14 160/74 H 94 L 02/06/20 04:51 97.6 F 77 20 132/60 93 L Weight Weight 146 lb 9.6 oz I&O: 02/05/20 02/06/20 02/07/20 06:59 06:59 06:59 Intake Total 1490 Output Total 2500 Balance -1010 Result Diagrams: 02/06/20 08:21 02/06/20 08:21 Hospitalist ROS - Medication Medications: Active Medications Generic Name Dose Route Start Last Admin Trade Name Freq PRN Reason Stop Dose Admin Acetaminophen 650 mg 02/04/20 21:26 02/05/20 23:23 Acetaminophen 325 Mg Tab PO 650 mg Q4H PRN Administration Headache/Fever/Mild Pain (1-3) Aspirin 81 mg 02/05/20 09:00 02/06/20 09:22 Aspirin Chewable 81 Mg Tab PO 81 mg DAILY [facility]OC[facility]N Administration Atorvastatin Calcium 40 mg 02/05/20 21:00 02/05/20 20:14 Atorvastatin Calcium 40 Mg Tab PO 40 mg HS JOC[facility]N Administration Citalopram Hydrobromide 40 mg 02/05/20 09:00 02/06/20 09:22 Citalopram 20 Mg Tab PO 40 mg DAILY [facility] Administration Clonidine 0.1 mg 02/04/20 21:26 02/05/20 08:25 Clonidine 0.1 Mg Tab PO 0.1 mg BIDPRN PRN Administration SBP > 160, use second Cyanocobalamin 1,000 mcg 02/05/20 09:00 02/06/20 09:22 Cyanocobalamin (Vitamin B-12) 1,000 Mcg Tab PO 1,000 mcg DAILY [facility] Administration Enoxaparin Sodium 40 mg 02/06/20 11:30 02/06/20 11:42 Enoxaparin Sodium 40 Mg/0.4 Ml Syringe SC 02/06/20 14:00 40 mg NOW JOCELYN Administration Famotidine 20 mg 02/05/20 09:00 02/06/20 09:22 Famotidine 20 Mg Tab PO 20 mg BID JOC[facility]N Administration Fluticasone Propionate 0 gm 02/05/20 09:00 02/06/20 09:23 Fluticasone Propionate Nasal [place] 16 Gm Bottle NASAL 2 spr BID JOCELYN Administration Levothyroxine Sodium 75 mcg 02/05/20 06:00 02/06/20 05:00 Levothyroxine Sodium 75 Mcg Tab PO 75 mcg 0600 [facility] Administration Montelukast Sodium 10 mg 02/05/20 21:00 02/05/20 20:14 Montelukast Sodium 10 Mg Tablet PO 10 mg HS [facility]OC[facility]N Administration Pantoprazole Sodium 40 mg 02/05/20 09:00 02/06/20 09:22 Pantoprazole 40 Mg Tab PO 40 mg DAILY [facility] Administration Propylene Glycol 1 ml 02/04/20 21:28 02/06/20 09:23 Systane Gel Ophth Drops 10 Ml OP 1 drop PRN PRN Administration Dry Eyes - Exam Eye: PERRL, anicteric sclera Heart: RRR, no gallops, no rubs, normal peripheral pulses, murmur present, II/IV Respiratory: CTAB, no wheezes, no rales, no ronchi, normal chest expansion, no tachypnea Gastrointestinal: soft, non-tender, non-distended, normal bowel sounds, no palpable masses, no hepatomegaly Extremities: no cyanosis, no clubbing, no edema Hosp A/P (1) Acute on chronic combined systolic and diastolic CHF, NYHA class 2 Code(s): I50.43 - ACUTE ON CHRONIC COMBINED SYSTOLIC AND DIASTOLIC HRT FAIL S tatus: Acute (2) CAD (coronary artery disease) Code(s): I25.10 - ATHSCL HEART DISEASE OF [place] CORONARY ARTERY W/O ANG PCTRS Status: Chronic (3) Acute respiratory failure Code(s): J96.00 - ACUTE RESPIRATORY FAILURE, UNSP W HYPOXIA OR HYPERCAPNIA Status: Acute (4) Aortic stenosis Code(s): I35.0 - NONRHEUMATIC AORTIC (VALVE) STENOSIS Status: Acute (5) HTN (hypertension) Code(s): I10 - ESSENTIAL (PRIMARY) HYPERTENSION Status: Chronic - Plan * Acute on chronic systolic and diastolic heart failure- Lasix has been discontinued * Aortic Stenosis- await further recommendations from Dr. Werner * HTN- blood pressure is a bit more stable today * CAD- he could have some cardiac ischemia, they ay have contributed to his current presentation- possible cardiac cath tomorrow to assess his coronary anatomy as well as his aortic valve
[2020-02-06] MEDS: Acetaminophen 325 MG TAB PO PRN ×2 (14:01→22:42)
[2020-02-06] MEDS: Carvedilol 3.125 MG TAB PO SCH (16:11)
[2020-02-06] MEDS: Atorvastatin Calcium 40 MG TAB PO SCH (21:59)
[2020-02-06] MEDS: Montelukast Sodium 10 mg Tablet PO SCH (21:59)
[2020-02-06] MEDS: Enoxaparin Sodium 40 MG/0.4 ML SYRINGE SC SCH (22:00)
[2020-02-07] MEDS: Levothyroxine Sodium 75 MCG TAB PO SCH (05:13)
[2020-02-07] MEDS: cloNIDine 0.1 MG TAB PO PRN (07:41)
[2020-02-07] MEDS ORDERED: Spironolactone 25 MG TAB PO SCH (09:00)
[2020-02-07] MEDS: SYSTANE GEL OPHTH DROPS 10 ML OP PRN ×2 (09:37→21:21)
[2020-02-07] MEDS: Carvedilol 3.125 MG TAB PO SCH ×2 (09:39→17:03)
[2020-02-07] MEDS: Fluticasone Propionate Nasal Spray 16 gm Bottle NASAL SCH ×2 (09:39→21:22)
[2020-02-07] MEDS: Citalopram 20 MG TAB PO SCH (09:40)
[2020-02-07] MEDS: Cyanocobalamin (Vitamin B-12) 1,000 MCG TAB PO SCH (09:40)
[2020-02-07] MEDS: Famotidine 20 MG TAB PO SCH ×4 (09:41→22:16)
[2020-02-07] MEDS: Aspirin Chewable 81 MG TAB PO SCH (09:41)
--- NOTE | 2020-02-07 10:18 | PDOC.HOSPP ---
- Subjective Encounter Date: 02/07/20 Encounter Time: 10:17 Subjective: Mr. Gaitan was seen today in follow-up of respiratory failure. He says he feels fine. He denies chest pain or dyspnea. - Objective Vital Signs & Weight: Vital Signs (12 hours) Temp Pulse Resp BP Pulse Ox 02/07/20 07:24 97.6 F 77 24 H 179/73 H 94 L 02/07/20 04:00 97.6 F 78 16 117/58 L 91 L 02/06/20 23:35 132/58 L Weight Weight 145 lb 6.4 oz I&O: 02/06/20 02/07/20 02/08/20 06:59 06:59 06:59 Intake Total 1490 1000 Output Total 2500 1500 Balance -1010 -500 Result Diagrams: 02/06/20 08:21 02/06/20 08:21 Hospitalist ROS - Medication Medications: Active Medications Generic Name Dose Route Start Last Admin Trade Name Freq PRN Reason Stop Dose Admin Acetaminophen 650 mg 02/04/20 21:26 02/06/20 22:42 Acetaminophen 325 Mg Tab PO 650 mg Q4H PRN Administration Headache/Fever/Mild Pain (1-3) Aspirin 81 mg 02/05/20 09:00 02/07/20 09:41 Aspirin Chewable 81 Mg Tab PO 81 mg DAILY [facility] Administration Atorvastatin Calcium 40 mg 02/05/20 21:00 02/06/20 21:59 Atorvastatin Calcium 40 Mg Tab PO 40 mg HS [facility] Administration Carvedilol 3.125 mg 02/06/20 17:00 02/07/20 09:39 Carvedilol 3.125 Mg Tab PO Not Given BID-WM JOC[facility]N Citalopram Hydrobromide 40 mg 02/05/20 09:00 02/07/20 09:40 Citalopram 20 Mg Tab PO 40 mg DAILY [facility] Administration Clonidine 0.1 mg 02/04/20 21:26 02/07/20 07:41 Clonidine 0.1 Mg Tab PO 0.1 mg BIDPRN PRN Administration SBP > 160, use second Cyanocobalamin 1,000 mcg 02/05/20 09:00 02/07/20 09:40 Cyanocobalamin (Vitamin B-12) 1,000 Mcg Tab PO 1,000 mcg DAILY [facility] Administration Enoxaparin Sodium 40 mg 02/06/20 21:00 02/06/20 22:00 Enoxaparin Sodium 40 Mg/0.4 Ml Syringe SC 40 mg 2100 [facility] Administration Famotidine 20 mg 02/05/20 09:00 02/07/20 09:41 Famotidine 20 Mg Tab PO 20 mg BID [facility] Administration Fluticasone Propionate 0 gm 02/05/20 09:00 02/07/20 09:39 Fluticasone Propionate Nasal [place] 16 Gm Bottle NASAL 2 spr BID [facility] Administration Levothyroxine Sodium 75 mcg 02/05/20 06:00 02/07/20 05:13 Levothyroxine Sodium 75 Mcg Tab PO 75 mcg 0600 [facility] Administration Montelukast Sodium 10 mg 02/05/20 21:00 02/06/20 21:59 Montelukast Sodium 10 Mg Tablet PO 10 mg HS [facility] Administration Pantoprazole Sodium 40 mg 02/05/20 09:00 02/07/20 09:40 Pantoprazole 40 Mg Tab PO 40 mg DAILY [facility] Administration Propylene Glycol 1 ml 02/04/20 21:28 02/07/20 09:37 Systane Gel Ophth Drops 10 Ml OP 1 drop PRN PRN Administration Dry Eyes Spironolactone 25 mg 02/07/20 09:00 02/07/20 09:40 Spironolactone 25 Mg Tab PO 02/07/20 11:00 Not Given NOW JOCELYN - Exam Eye: PERRL, anicteric sclera Heart: RRR, no gallops, no rubs, normal peripheral pulses, murmur present, II/IV Respiratory: CTAB, no wheezes, no rales, no ronchi, normal chest expansion, no tachypnea Gastrointestinal: soft, non-tender, non-distended, normal bowel sounds, no palpable masses, no hepatomegaly Extremities: no cyanosis, 1+ LE edema Hosp A/P (1) Acute on chronic combined systolic and diastolic CHF, NYHA class 2 Code(s): I50.43 - ACUTE ON CHRONIC COMBINED SYSTOLIC AND DIASTOLIC HRT FAIL Status: Acute (2) CAD (coronary artery disease) Code(s): I25.10 - ATHSCL HEART DISEASE OF [place] CORONARY ARTERY W/O ANG PCTRS Status: Chronic (3) Acute respiratory failure Code(s): J96.00 - ACUTE RESPIRATORY FAILURE, UNSP W HYPOXIA OR HYPERCAPNIA Status: Acute (4) Aortic stenosis Code(s): I35.0 - NONRHEUMATIC AORTIC (VALVE) STENOSIS Status: Acute (5) HTN (hypertension) Code(s): I10 - ESSENTIAL (PRIMARY) HYPERTENSION Status: Chronic - Plan * Acute on chronic systolic and diastolic heart failure- compensated * Aortic Stenosis- await further recommendations from Dr. Werner * HTN- blood pressure is a bit more labile today * CAD- await Cardiology evaluation
[2020-02-07] MEDS ORDERED: Communication Order-Pharmacy FS SCH (13:15)
[2020-02-07] MEDS: diphenhydrAMINE 25 MG CAP PO SCH ×3 (14:54→22:16)
[2020-02-07] MEDS: predniSONE 20 MG TAB PO SCH ×3 (14:55→22:16)
[2020-02-07] MEDS: Acetaminophen 325 MG TAB PO PRN (15:55)
[2020-02-07] MEDS: Montelukast Sodium 10 mg Tablet PO SCH (21:21)
[2020-02-07] MEDS: Enoxaparin Sodium 40 MG/0.4 ML SYRINGE SC SCH (21:21)
[2020-02-07] MEDS: Atorvastatin Calcium 40 MG TAB PO SCH (21:21)
[2020-02-08] MEDS: Aspirin Chewable 81 MG TAB PO SCH (05:23)
[2020-02-08] MEDS: Carvedilol 3.125 MG TAB PO SCH ×2 (05:23→17:40)
[2020-02-08] MEDS: Famotidine 20 MG TAB PO SCH ×4 (05:23→23:51)
[2020-02-08] MEDS: Cyanocobalamin (Vitamin B-12) 1,000 MCG TAB PO SCH (05:24)
[2020-02-08] MEDS: Spironolactone 25 MG TAB PO SCH (05:24)
[2020-02-08] MEDS: Citalopram 20 MG TAB PO SCH (05:24)
[2020-02-08] MEDS ORDERED: Fentanyl 100 MCG/2 ML VIAL ONE (07:10)
[2020-02-08] MEDS ORDERED: Midazolam HCl 2 mg/2 ml Vial ONE (07:10)
[2020-02-08] MEDS ORDERED: Acetaminophen/Codeine 30-300mg Tablet PO PRN (08:17)
[2020-02-08] MEDS ORDERED: Sodium Chloride 0.9% 200 ML IV PRN (08:17)
[2020-02-08] MEDS ORDERED: Sodium Chloride 0.9% 250 ML IV SCH (08:30)
[2020-02-08] MEDS ORDERED: Iopamidol 370 76% 100 ML VIAL ONE (09:18)
[2020-02-08] MEDS: SYSTANE GEL OPHTH DROPS 10 ML OP PRN ×2 (10:02→20:23)
[2020-02-08] MEDS: Fluticasone Propionate Nasal Spray 16 gm Bottle NASAL SCH ×2 (10:03→20:23)
[2020-02-08] MEDS: Levothyroxine Sodium 75 MCG TAB PO SCH (12:39)
[2020-02-08] MEDS: Ondansetron PF 4 MG/2 ML Vial IVP PRN (17:45)
[2020-02-08] MEDS: Acetaminophen 325 MG TAB PO PRN (17:45)
[2020-02-08] MEDS: predniSONE 20 MG TAB PO SCH ×2 (18:17→23:51)
[2020-02-08] MEDS: diphenhydrAMINE 12.5 MG/5 ML UDCUP PO SCH ×2 (18:17→23:51)
[2020-02-08] MEDS: Montelukast Sodium 10 mg Tablet PO SCH (20:24)
[2020-02-08] MEDS: Atorvastatin Calcium 40 MG TAB PO SCH (20:24)
--- NOTE | 2020-02-08 23:38 | CON ---
DATE OF CONSULTATION: 02/08/2020 HISTORY OF PRESENT ILLNESS: I am seeing Mr. Gaitan at our [facility] telemetry floor for electrophysiology consultation. His problems are: 1. New onset of CHF. BNP 51397. 2. Worsening cardiomyopathy. a. Prior history of coronary bypass surgery 10 years ago. b. 2D echo from 09/01/2018 shows LVEF is 55% worsening to LVEF 40% on echo 02/05/2020. Significant aortic stenosis mild aortic regurgitation. Maximal TR. c. Left heart cath demonstrates only 5 mmHg aortic valve gradient and patent grafts. 3. Left bundle-branch block. 4. History of bradycardia, status post dual-chamber pacemaker implantation. 5. Cardiovascular disease with history of carotid artery stenosis. ALLERGIES: CIPRO, ERYTHROMYCIN BASE, IODINE, PENICILLINS. MEDICATIONS AT HOME: Include vitamin B12, Celexa, Singulair, Protonix, coenzyme Q10, Livalo Synthroid, Ativan, Nitrostat, Zofran, Systane, Flonase, and aspirin. SUBJECTIVE: Mr. Gaitan is here admitted on the with acute heart failure exacerbation. He has increasing shortness of breath and orthopnea. He required IV diuretic, which improved his dyspnea. He underwent a left heart catheterization evaluation on the demonstrating patent grafts and only 5 mmHg gradient in the aortic valve. I will consult with Dr. Werner for consideration of device and bundle-branch block and worsening LVEF and heart failure like symptoms. Currently, he is able to lay flat. No complication of the cardiac catheterization noted. Denies stroke-like symptoms or fever, chills, cough. No allergic reactions. The rest of 12-point system otherwise unremarkable. PAST MEDICAL HISTORY: As above. History of hypothyroidism. PAST SURGICAL HISTORY: Significant for appendectomy, hemorrhoid surgery, carotid stent, cholecystectomy, bypass surgery x5 vessels, and pacemaker implantation. FAMILY HISTORY: Not significant. SOCIAL HISTORY: The patient is a prior smoker. OBJECTIVE: VITAL SIGNS: Blood pressure is 165/78, heart rate 75, respirations 24, temperature 97.7 degrees Fahrenheit. GENERAL: Alert and oriented man, in no apparent distress. NECK: Supple. Jugular veins not distended. CHEST: Coarse without crackles. HEART: Sounds are regular to rate and rhythm. No murmur or gallop. Left epicardial pacemaker insertion site is well healed. ABDOMEN: Benign. Bowel sounds are positive. EXTREMITIES: Lower extremities without edema, clubbing, or cyanosis. Pulses are adequate. NEUROLOGIC: The patient is nonfocal. MUSCULOSKELETAL: Without joint swelling and deformity. SKIN: Without rash. DATABASE: The telemetry strips reviewed with sinus rhythm, bundle branch block appearance, QRS, first-degree AV block, atrial pacing is seen. White count 4.9, hemoglobin 12.7, platelet count is 193. Sodium 134, potassium 3.7, BUN is 13, creatinine 0.77. Troponin high is 0.01. BNP is 1770 on admission. The pacemaker interrogation reveals about 1% dual-chamber pacemaker in place. Chest x-ray from 02/04/2020 reveals adequately placed dual-chamber pacemaker, increased vascular markings, mild cardiomegaly, small effusions only. ASSESSMENT AND PLAN: Mr. Gaitan is an 89-year-old man with history of coronary artery disease, prior bypass surgery, also bradycardia with dual-chamber pacemaker in place due to sick sinus syndrome, even though he had an aortic valve stenosis by echocardiogram his left heart cath revealed severe stenosis, on medical management currently. He has worsening LV EF and corresponding increasing CHF like symptoms recently. He did develop bundle branch block compared to his prior EKGs, LV dyssynchrony likely is contributor to his worsening heart failure. I have discussed with the patient about potential benefit for a Bi-V pacemaker upgrade. He understands the pros and cons, risks, benefits. He is willing to proceed. We will need to give him some premedication for his history of IV dye allergy. The LVEF over 35% BiV ICD. ICD is not recommended, but Bi V pacemaker will likely improve his LV function or likely reduce his future heart failure exacerbation episodes as well. Thank you for allowing me to participate in care this patient. Job ID: [id number]
[2020-02-09 05:11] LABS: Anion Gap 9 mmol/L (10-20); BUN (Urea Nitrogen) 20 mg/dL (8.4-25.7); Calc. Creatinine Clearance 62 mL/min (70-130); Calcium 9.9 mg/dL (7.8-10.44); Carbon Dioxide 34 mmol/L (23-31); Chloride 96 mmol/L (98-107); Estimated GFR-MDRD Greater than 90; Glucose 134 mg/dL (83-110); Potassium 4.4 mmol/L (3.5-5.1); Sodium 135 mmol/L (136-145)
[2020-02-09] MEDS: diphenhydrAMINE 12.5 MG/5 ML UDCUP PO SCH (05:50)
[2020-02-09] MEDS: predniSONE 20 MG TAB PO SCH (05:51)
[2020-02-09] MEDS: Levothyroxine Sodium 75 MCG TAB PO SCH (05:51)
[2020-02-09] MEDS: Famotidine 20 MG TAB PO SCH ×4 (05:51→21:47)
[2020-02-09] MEDS: Aspirin Chewable 81 MG TAB PO SCH (08:44)
[2020-02-09] MEDS: Spironolactone 25 MG TAB PO SCH (08:44)
[2020-02-09] MEDS: Carvedilol 3.125 MG TAB PO SCH ×2 (08:44→17:39)
[2020-02-09] MEDS: Cyanocobalamin (Vitamin B-12) 1,000 MCG TAB PO SCH (08:44)
[2020-02-09] MEDS: Fluticasone Propionate Nasal Spray 16 gm Bottle NASAL SCH ×2 (08:44→21:48)
[2020-02-09] MEDS: SYSTANE GEL OPHTH DROPS 10 ML OP PRN (08:49)
[2020-02-09] MEDS ORDERED: Iopamidol 370 76% 50 ML VIAL FS ONE (09:03)
[2020-02-09] MEDS: Citalopram 20 MG TAB PO SCH (09:38)
[2020-02-09] MEDS ORDERED: Lidocaine 1% PF 5 ML VIAL ONE (11:20)
[2020-02-09] MEDS ORDERED: PROPOFOL 200 MG/20 ML VIAL ONE (11:20)
[2020-02-09] MEDS ORDERED: PHENYLEPHRINE-NS 100 MCG/ML 10 ML SYRINGE ONE (11:20)
--- NOTE | 2020-02-09 12:23 | PDOC.HOSPP ---
- Subjective Encounter Date: 02/09/20 Encounter Time: 12:19 Subjective: Mr. Gaitan was seen today in follow-up of CHF exacerbation. He does not have any complaints. - Objective Vital Signs & Weight: Vital Signs (12 hours) Temp Pulse Resp BP Pulse Ox 02/09/20 08:08 93 L 02/09/20 07:30 97.5 F L 69 16 118/59 L 95 02/09/20 04:00 97.9 F 91 16 144/65 H 93 L 02/09/20 00:25 120/56 L Weight Weight 147 lb 11.2 oz I&O: 02/08/20 02/09/20 02/10/20 06:59 06:59 06:59 Intake Total 1590 2165 Output Total 950 1505 Balance 640 660 Result Diagrams: 02/06/20 08:21 02/09/20 04:30 Hospitalist ROS - Medication Medications: Active Medications Generic Name Dose Route Start Last Admin Trade Name Freq PRN Reason Stop Dose Admin Acetaminophen 650 mg 02/04/20 21:26 02/08/20 17:45 Acetaminophen 325 Mg Tab PO 650 mg Q4H PRN Administration Headache/Fever/Mild Pain (1-3) Aspirin 81 mg 02/05/20 09:00 02/09/20 08:44 Aspirin Chewable 81 Mg Tab PO 81 mg DAILY JOC[facility]N Administration Atorvastatin Calcium 40 mg 02/05/20 21:00 02/08/20 20:24 Atorvastatin Calcium 40 Mg Tab PO 40 mg HS JOCELYN Administration Carvedilol 3.125 mg 02/06/20 17:00 02/09/20 08:44 Carvedilol 3.125 Mg Tab PO 3.125 mg BID-WM JOCELYN Administration Citalopram Hydrobromide 40 mg 02/05/20 09:00 02/09/20 09:38 Citalopram 20 Mg Tab PO 40 mg DAILY JOC[facility]N Administration Cyanocobalamin 1,000 mcg 02/05/20 09:00 02/09/20 08:44 Cyanocobalamin (Vitamin B-12) 1,000 Mcg Tab PO 1,000 mcg DAILY JOC[facility]N Administration Famotidine 20 mg 02/08/20 09:00 02/09/20 08:44 Famotidine 20 Mg Tab PO 20 mg BID JOC[facility]N Administration Fluticasone Propionate 0 gm 02/05/20 09:00 02/09/20 08:44 Fluticasone Propionate Nasal [place] 16 Gm Bottle NASAL 2 spr BID JOC[facility]N Administration Levothyroxine Sodium 75 mcg 02/05/20 06:00 02/09/20 05:51 Levothyroxine Sodium 75 Mcg Tab PO 75 mcg 0600 JOC[facility]N Administration Montelukast Sodium 10 mg 02/05/20 21:00 02/08/20 20:24 Montelukast Sodium 10 Mg Tablet PO 10 mg HS JOCELYN Administration Ondansetron HCl 4 mg 02/04/20 21:26 02/08/20 17:45 Ondansetron Pf 4 Mg/2 Ml Vial IVP 4 mg Q6H PRN Administration Nausea/Vomiting, use 1st Pantoprazole Sodium 40 mg 02/05/20 09:00 02/09/20 08:44 Pantoprazole 40 Mg Tab PO 40 mg DAILY JOC[facility]N Administration Propylene Glycol 1 ml 02/04/20 21:28 02/09/20 08:49 Systane Gel Ophth Drops 10 Ml OP 1 drop PRN PRN Administration Dry Eyes Sodium Chloride 10 ml 02/08/20 09:00 02/09/20 08:45 Flush - Normal Saline 10 Ml Syringe IVF 10 ml Q12HR JOCELYN Administration Spironolactone 25 mg 02/08/20 08:00 02/09/20 08:44 Spironolactone 25 Mg Tab PO 25 mg QAM-WM JOCELYN Administration - Exam Eye: PERRL, anicteric sclera Heart: RRR, no gallops, no rubs, normal peripheral pulses, murmur present, II/IV Respiratory: CTAB, no wheezes, no rales, no ronchi Gastrointestinal: soft, non-tender, non-distended, normal bowel sounds, no palpable masses Extremities: no cyanosis, no edema Hosp A/P (1) Acute on chronic combined systolic and diastolic CHF, NYHA class 2 Code(s): I50.43 - ACUTE ON CHRONIC COMBINED SYSTOLIC AND DIASTOLIC HRT FAIL Status: Acute (2) CAD (coronary artery disease) Code(s): I25.10 - ATHSCL HEART DISEASE OF [place] CORONARY ARTERY W/O ANG PCTRS Status: Chronic (3) Acute respiratory failure Code(s): J96.00 - ACUTE RESPIRATORY FAILURE, UNSP W HYPOXIA OR HYPERCAPNIA Status: Acute (4) Aortic stenosis Code(s): I35.0 - NONRHEUMATIC AORTIC (VALVE) STENOSIS Status: Acute (5) HTN (hypertension) Code(s): I10 - ESSENTIAL (PRIMARY) HYPERTENSION Status: Chronic - Plan * Acute on chronic systolic and diastolic heart failure- compensated * The plan was to upgrade to a Bi V pacemaker * HTN- blood pressure is stable * CAD- stable
[2020-02-09] MEDS ORDERED: Lidocaine 1% (PF) 30 ML VIAL ONE (14:16)
[2020-02-09] MEDS ORDERED: Clindamycin/D5W 600 mg/50 ml Premix Bag ONE (14:16)
[2020-02-09] MEDS ORDERED: Fentanyl 100 MCG/2 ML VIAL ONE (14:40)
--- NOTE | 2020-02-09 16:49 | RAD ---
Exam: Chest one view HISTORY:BIV placement Comparison: 02/04/2020 FINDINGS: Cardiac silhouette:Stable cardiac silhouette. Redemonstration of sternotomy wires and mediastinal cli ps. There is been interval exchange of a previously noted left-sided transvenous pacemaker. Currently, there is a 3-lead pacemaker with lead position of the right atrium, right ventricle and co ronary sinus. Aorta: Unremarkable Pulmonary vessels: Normal Costophrenic angles: Clear LUNGS: Chronic lung parenchymal changes. No masses or consolidation. Pneumothorax: None Osseous abnormalities: None IMPRESSION: 1. Interval exchange with placement of a 3-lead transvenous pacemaker. No pneumothorax.
[2020-02-09] MEDS: Sacubitril 49 MG/Valsartan 51 MG TABLET PO SCH (21:47)
[2020-02-09] MEDS: Acetaminophen 325 MG TAB PO PRN (21:47)
[2020-02-09] MEDS: Clindamycin 150 MG CAP PO SCH (21:47)
[2020-02-09] MEDS: Montelukast Sodium 10 mg Tablet PO SCH (21:48)
[2020-02-09] MEDS: Atorvastatin Calcium 40 MG TAB PO SCH (21:48)
[2020-02-10 04:43] LABS: Anion Gap 9 mmol/L (10-20); BUN (Urea Nitrogen) 24 mg/dL (8.4-25.7); Calc. Creatinine Clearance 59 mL/min (70-130); Calcium 8.8 mg/dL (7.8-10.44); Carbon Dioxide 32 mmol/L (23-31); Chloride 98 mmol/L (98-107); Estimated GFR-MDRD 86; Glucose 114 mg/dL (83-110); Sodium 135 mmol/L (136-145)
[2020-02-10] MEDS: Levothyroxine Sodium 75 MCG TAB PO SCH (05:56)
[2020-02-10] MEDS: Clindamycin 150 MG CAP PO SCH ×2 (05:56→14:49)
[2020-02-10] MEDS: Citalopram 20 MG TAB PO SCH (09:06)
[2020-02-10] MEDS: Aspirin Chewable 81 MG TAB PO SCH (09:06)
[2020-02-10] MEDS: Carvedilol 3.125 MG TAB PO SCH ×2 (09:07→18:42)
[2020-02-10] MEDS: Fluticasone Propionate Nasal Spray 16 gm Bottle NASAL SCH (09:07)
[2020-02-10] MEDS: Famotidine 20 MG TAB PO SCH (09:07)
[2020-02-10] MEDS: Cyanocobalamin (Vitamin B-12) 1,000 MCG TAB PO SCH (09:07)
[2020-02-10] MEDS: Sacubitril 49 MG/Valsartan 51 MG TABLET PO SCH (09:07)
[2020-02-10] MEDS: Spironolactone 25 MG TAB PO SCH (09:07)
[2020-02-10] MEDS: Acetaminophen 325 MG TAB PO PRN (09:08)
[2020-02-10] MEDS: SYSTANE GEL OPHTH DROPS 10 ML OP PRN (09:08)
[2020-02-10] MEDS: Ondansetron PF 4 MG/2 ML Vial IVP PRN (09:08)
--- NOTE | 2020-02-10 14:09 | PDOC.HOSPP ---
- Subjective Encounter Date: 02/10/20 Encounter Time: 14:07 Subjective: Mr. Gaitan was seen today in follow-up of CHF exacerbation. He is post BiV pace- maker placement. He does not have any complaints. He notes that his arm is a little sore, otherwise ok. - Objective Vital Signs & Weight: Vital Signs (12 hours) Temp Pulse Resp BP BP Pulse Ox 02/10/20 11:45 97.4 F L 65 16 99/55 L 94 L 02/10/20 08:22 93 L 02/10/20 08:17 97.7 F 71 16 99/57 L 99/57 L 93 L 02/10/20 07:30 97.7 F 71 16 99/57 L 93 L 02/10/20 04:00 98.7 F 62 15 98/53 L 93 L Weight Weight 150 lb 4.8 oz I&O: 02/09/20 02/10/20 02/11/20 06:59 06:59 06:59 Intake Total 2165 730 Output Total 1505 800 Balance 660 -70 Result Diagrams: 02/06/20 08:21 02/10/20 04:04 Hospitalist ROS - Medication Medications: Active Medications Generic Name Dose Route Start Last Admin Trade Name Freq PRN Reason Stop Dose Admin Acetaminophen 650 mg 02/04/20 21:26 02/10/20 09:08 Acetaminophen 325 Mg Tab PO 650 mg Q4H PRN Administration Headache/Fever/Mild Pain (1-3) Aspirin 81 mg 02/05/20 09:00 02/10/20 09:06 Aspirin Chewable 81 Mg Tab PO 81 mg DAILY JOCELYN Administration Atorvastatin Calcium 40 mg 02/05/20 21:00 02/09/20 21:48 Atorvastatin Calcium 40 Mg Tab PO 40 mg HS JOCELYN Administration Carvedilol 3.125 mg 02/06/20 17:00 02/10/20 09:07 Carvedilol 3.125 Mg Tab PO 3.125 mg BID-WM JOCELYN Administration Citalopram Hydrobromide 40 mg 02/05/20 09:00 02/10/20 09:06 Citalopram 20 Mg Tab PO 40 mg DAILY JOCELYN Administration Clindamycin HCl 300 mg 02/09/20 22:00 02/10/20 05:56 Clindamycin 150 Mg Cap PO 02/16/20 22:01 300 mg Q8HR JOCELYN Administration Cyanocobalamin 1,000 mcg 02/05/20 09:00 02/10/20 09:07 Cyanocobalamin (Vitamin B-12) 1,000 Mcg Tab PO 1,000 mcg DAILY JOCELYN Administration Famotidine 20 mg 02/08/20 09:00 02/10/20 09:07 Famotidine 20 Mg Tab PO 20 mg BID JOCELYN Administration Fluticasone Propionate 0 gm 02/05/20 09:00 02/10/20 09:07 Fluticasone Propionate Nasal [place] 16 Gm Bottle NASAL 2 spr BID JOCELYN Administration Levothyroxine Sodium 75 mcg 02/05/20 06:00 02/10/20 05:56 Levothyroxine Sodium 75 Mcg Tab PO 75 mcg 0600 JOCELYN Administration Montelukast Sodium 10 mg 02/05/20 21:00 02/09/20 21:48 Montelukast Sodium 10 Mg Tablet PO 10 mg HS JOCELYN Administration Ondansetron HCl 4 mg 02/04/20 21:26 02/10/20 09:08 Ondansetron Pf 4 Mg/2 Ml Vial IVP 4 mg Q6H PRN Administration Nausea/Vomiting, use 1st Pantoprazole Sodium 40 mg 02/05/20 09:00 02/10/20 09:06 Pantoprazole 40 Mg Tab PO 40 mg DAILY JOCELYN Administration Propylene Glycol 1 ml 02/04/20 21:28 02/10/20 09:08 Systane Gel Ophth Drops 10 Ml OP 1 drop PRN PRN Administration Dry Eyes Sacubitril/Valsartan 1 tab 02/09/20 21:00 02/10/20 09:07 Sacubitril 49 Mg/Valsartan 51 Mg Tablet PO 1 tab BID JOCELYN Administration Sodium Chloride 10 ml 02/08/20 09:00 02/10/20 09:07 Flush - Normal Saline 10 Ml Syringe IVF 10 ml Q12HR JOCELYN Administration Spironolactone 25 mg 02/08/20 08:00 02/10/20 09:07 Spironolactone 25 Mg Tab PO 25 mg QAM-WM JOCELYN Administration - Exam Eye: PERRL, anicteric sclera Heart: RRR, no murmur, no gallops, no rubs, normal peripheral pulses Respiratory: CTAB, no wheezes, no rales, no ronchi, normal chest expansion, no tachypnea, normal percussion Gastrointestinal: soft, non-tender, non-distended, normal bowel sounds, no palpable masses Extremities: no cyanosis, no edema Hosp A/P (1) Acute on chronic combined systolic and diastolic CHF, NYHA class 2 Code(s): I50.43 - ACUTE ON CHRONIC COMBINED SYSTOLIC AND DIASTOLIC HRT FAIL Status: Acute (2) CAD (coronary artery disease) Code(s): I25.10 - ATHSCL HEART DISEASE OF [place] CORONARY ARTERY W/O ANG PCTRS Status: Chronic (3) Acute respiratory failure Code(s): J96.00 - ACUTE RESPIRATORY FAILURE, UNSP W HYPOXIA OR HYPERCAPNIA Status: Acute (4) Aortic stenosis Code(s): I35.0 - NONRHEUMATIC AORTIC (VALVE) STENOSIS Status: Acute (5) HTN (hypertension) Code(s): I10 - ESSENTIAL (PRIMARY) HYPERTENSION Status: Chronic - Plan * Acute on chronic systolic and diastolic heart failure- compensated * he is s/p pace-maker placement, and doing well\ * Stable for discharge
[2020-02-10 16:59] VITALS: BP 110/61; TEMP 97.9
--- NOTE | 2020-02-11 04:37 | DIS ---
DATE OF ADMISSION: 02/04/2020 DATE OF DISCHARGE: 02/10/2020 PRIMARY CARE PHYSICIAN: Isaac Gaitan MD DISCHARGE DISPOSITION: Home. DISCHARGE DIAGNOSES: 1. Acute on chronic systolic as well as diastolic heart failure. 2. Acute on chronic respiratory failure secondary to #1. 3. Aortic stenosis. 4. Left bundle branch block. 5. Coronary artery disease. 6. Hypertension. 7. History of bradycardia, status post pacemaker placement. 8. Hypothyroidism. 9. History of coronary artery bypass grafting surgery. DISCHARGE MEDICATIONS: Include: 1. Aspirin 81 mg daily. 2. Ativan 1 mg p.o. at bedtime as needed. 3. Flonase nasal spray b.i.d. 4. Livalo 4 mg at bedtime. 5. Nitrostat 0.4 sublingual p.r.n. 6. Levothyroxine 75 mcg p.o. daily. 7. Vitamin B12 of 1000 mcg p.o. daily. 8. Zofran 4 mg q.6 as needed. 9. Aldactone 25 mg p.o. daily. 10. Celexa 40 mg p.o. daily. 11. Clindamycin 300 mg p.o. q.8 for seven days. 12. CoQ10 of 200 mg p.o. b.i.d. 13. Carvedilol 3.125 mg b.i.d. 14. Entresto 49/51 mg p.o. b.i.d. 15. Florastor 250 mg p.o. daily. 16. Lipitor 40 mg p.o. at bedtime. 17. Protonix 40 mg p.o. daily. 18. Singulair 10 mg p.o. at bedtime. PROCEDURES DONE DURING ADMISSION: The patient had an echocardiogram in which the ejection fraction is estimated at 40% to 45%. There is E to A flow reversal noted consistent with diastolic dysfunction. Pacemaker leads were seen in the right atrium. There was evidence for severe aortic stenosis with a valve area of 0.8 cm2. The patient also had a cardiac catheterization. This revealed patent grafts of the HAQUE to the LAD, patent saphenous vein graft to the diagonal, patent saphenous vein graft to the RCA. There was normal left ventricular end-diastolic pressure and the gradient across the aortic valve was 5 mmHg. The patient also had an upgrade to a biventricular pacemaker. CODE STATUS: Full code. ALLERGIES: TO CIPROFLOXACIN, ERYTHROMYCIN BASE, IODINE, PENICILLIN, SULFA, PROCHLORPERAZINE, AND METOCLOPRAMIDE. HOSPITAL COURSE: Mr. Gaitan is a pleasant 89-year-old gentleman, who presented to the emergency room complaining of difficulty breathing. He was admitted with acute on chronic systolic heart failure. An echocardiogram was performed and it revealed that the patient had critical aortic stenosis. It was initially thought that this could be the cause of the acute on chronic systolic heart failure exacerbation. His senior field service engineer was consulted. The patient underwent cardiac catheterization to assess the gradient across the aortic valve plus to view the patient's coronary anatomy. It was found that the patient had patent grafts to the coronary arteries and surprisingly, the gradient across the aortic valve was only 5 mmHg. During the course of his evaluation, it was found that he had developed a left bundle branch block. There was concern that ventricular asynchrony with the pacemaker could potentially be causing the systolic heart failure. For this reason, Dr. King was consulted and the decision was made to upgrade the patient to a biventricular pacemaker. This is in hopes of improving his left ventricular synchrony and contractility. The patient underwent the procedure and had an uneventful postoperative course, and he was subsequently able to be discharged back home on 02/10/2020. He is to follow up with his primary care physician in approximately 1 week and also with Dr. Werner as instructed. Job ID: [id number]
--- NOTE | 2020-02-11 10:26 | PDOC.EP ---
- Subjective Date: 02/10/20 Time: 08:00 Interval History: follow up after upgrade to BiV PPM. no new complaints or events overnight. likely DC later today. Voices no complaints/concerns at the moment ROS: 8 point ROS negative - Objective Allergies/Adverse Reactions: Allergies Allergy/AdvReac Type Severity Reaction Status Date / Time ciprofloxacin Allergy Unknown Rash Verified 02/04/20 20:53 erythromycin base Allergy Unknown Rash Verified 02/04/20 20:53 [Erythromycin Base] iodine Allergy Unknown Rash Verified 02/04/20 20:53 Penicillins Allergy Unknown Rash Verified 02/04/20 20:53 Sulfa (Sulfonamide Allergy Unknown Rash Verified 02/04/20 20:53 Antibiotics) metoclopramide Allergy Rash Verified 02/04/20 20:53 prochlorperazine Allergy Rash Verified 02/04/20 20:53 Vital Signs & Weight: Weight 150 lb 4.8 oz I/O: I/O 02/10/20 02/11/20 02/12/20 06:59 06:59 06:59 Intake Total 730 500 Output Total 800 750 Balance -70 -250 - Physical Exam General: alert & oriented x3, appears well, no apparent distress, speech clear, affect appropriate HEENT: mucus membranes moist, normocephaly, EOMI Neck: supple neck, midline trachea, no lymphadenopathy Cardiology: regular rate and rhythm, no murmur, PMI nondisplaced Lungs: clear to auscultation, normal breath sounds, no wheeze, rales, rhonchi Neurology: cranial nerve 2-12 intact, grossly intact, no lateralizing findings Abdomen: unremarkable, active bowel sounds, no pulsations/bruits Extremities: dry, strong pulses, warm Skin: device site stable w/o swelling, left sided device. negative: bruising, drainage, hematoma Musculoskeletal: normal range of motion - Labs Result Diagrams: 02/06/20 08:21 02/10/20 04:04 - EKG Interpretation EKG Method: Telemetry EKG shows: Sinus rhythm - Device Device: biventricular, pacemaker Device Result: APSXtronic - Assessment/Plan Assessment/Plan: 1. Acute CHF -ischemic cardiomyopathy with LVEF drop from 55% to 40% 2. 3. LBBB 4. 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 Continue post implant antibiotics x7 days. Wound check in 2 weeks. OK for DC by EP
--- NOTE | 2020-02-12 16:47 | EKG ---
Test Reason : POSTOP Blood Pressure : / mmHG Vent. Rate : 061 BPM Atrial Rate : 075 BPM P-R Int : 156 ms QRS Dur : 146 ms QT Int : 548 ms P-R-T Axes : 000 -74 102 degrees QTc Int : 551 ms AV dual-paced rhythm Likely biventricular paced Anterior ischemia Confirmed by DR. Chloe SORIA ([id number]) on 02/12/2020 4:46:47 PM Referred By: GEORGETTE Confirmed By:DR. Chloe SORIA
== END 2020-02-10 18:25 | disposition home or self-care (01) | DRG 242 ==
LOC: 2NO 20:20
PROVIDERS: ADMIT Internal Medicine; ATTEND Internal Medicine
PROC: 3E02340 Introduction of Influenza Vaccine into Muscle, Percutaneous Approach (ICD-10-PCS; 2020-02-05)
PROC: 4A023N8 Measurement of Cardiac Sampling and Pressure, Bilateral, Percutaneous Approach (ICD-10-PCS; principal; 2020-02-08)
PROC: B2161ZZ Fluoroscopy of Right and Left Heart using Low Osmolar Contrast (ICD-10-PCS; 2020-02-08)
PROC: B2111ZZ Fluoroscopy of Multiple Coronary Arteries using Low Osmolar Contrast (ICD-10-PCS; 2020-02-08)
PROC: B2181ZZ Fluoroscopy of Left Internal Mammary Bypass Graft using Low Osmolar Contrast (ICD-10-PCS; 2020-02-08)
PROC: B2131ZZ Fluoroscopy of Multiple Coronary Artery Bypass Grafts using Low Osmolar Contrast (ICD-10-PCS; 2020-02-08)
PROC: 0JH607Z Insertion of Cardiac Resynchronization Pacemaker Pulse Generator into Chest Subcutaneous Tissue and Fascia, Open Approach (ICD-10-PCS; 2020-02-09)
PROC: 02HL3JZ Insertion of Pacemaker Lead into Left Ventricle, Percutaneous Approach (ICD-10-PCS; 2020-02-09)
PROC: 0JPT0PZ Removal of Cardiac Rhythm Related Device from Trunk Subcutaneous Tissue and Fascia, Open Approach (ICD-10-PCS; 2020-02-09)
DX: I11.0 Hypertensive heart disease with heart failure (principal); J96.20 Acute and chronic respiratory failure, unspecified whether with hypoxia or hypercapnia; I50.43 Acute on chronic combined systolic (congestive) and diastolic (congestive) heart failure; I25.10 Atherosclerotic heart disease of native coronary artery without angina pectoris; E78.5 Hyperlipidemia, unspecified; J30.2 Other seasonal allergic rhinitis; I42.8 Other cardiomyopathies; I44.7 Left bundle-branch block, unspecified; E78.00 Pure hypercholesterolemia, unspecified; E11.51 Type 2 diabetes mellitus with diabetic peripheral angiopathy without gangrene; I08.3 Combined rheumatic disorders of mitral, aortic and tricuspid valves; E03.9 Hypothyroidism, unspecified; Z20.828 Contact with and (suspected) exposure to other viral communicable diseases; Z95.0 Presence of cardiac pacemaker; Z90.49 Acquired absence of other specified parts of digestive tract; Z95.1 Presence of aortocoronary bypass graft; Z87.891 Personal history of nicotine dependence; Z79.899 Other long term (current) drug therapy; Z79.890 Hormone replacement therapy; Z79.82 Long term (current) use of aspirin; Z79.84 Long term (current) use of oral hypoglycemic drugs; Z88.0 Allergy status to penicillin; Z88.2 Allergy status to sulfonamides; Z88.8 Allergy status to other drugs, medicaments and biological substances; Z88.1 Allergy status to other antibiotic agents; Z91.041 Radiographic dye allergy status; Z23 Encounter for immunization
CPT/HCPCS: 33224; 36005; 36415; 71045; 75820; 76942; 80048; 80061; 80076; 83735; 84484; 85025; 87635; 90471; 90662; 93005; 93306; 93461; 93561; 94760; 99152; C1882; C1900; G0008; J1644; J1650; J1940; J2001; J2250; J2405; J2704; J3010; J3370; J3490; J7512; Q0163; Q9967; U0003

== ENCOUNTER 2020-08-07 22:35 | Inpatient (IN) | payer MEDICARE, MEDICAID ==
[2020-08-07 23:01] LABS: Bilirubin Negative (Negative); Blood, Urine Negative (Negative); Clarity Clear (Clear); Glucose, Urine (Dipstick) Normal (Negative); Ketone, Urine Negative (Negative); Leukocyte Negative Leu/uL (Negative); Nitrite Negative (Negative); Protein, Urine (Dipstick) Negative (Neg-Trace); Specific Gravity, Urine 1.008 (1.002-1.036); Urobilinogen Normal mg/dL (Less than 2); pH, Urine 6.5 (5.0-9.0)
[2020-08-07 23:27] LABS: ALT (SGPT) 13 U/L (8-55); AST (SGOT) 27 U/L (5-34); Albumin 4.1 g/dL (3.4-4.8); Alkaline Phosphatase 50 U/L (40-110); Anion Gap 17 mmol/L (10-20); BUN (Urea Nitrogen) 14 mg/dL (8.4-25.7); Bilirubin, Total 0.5 mg/dL (0.2-1.2); Calc. Creatinine Clearance 0 mL/min (70-130); Calcium 8.6 mg/dL (7.8-10.44); Carbon Dioxide 23 mmol/L (23-31); Chloride 100 mmol/L (98-107); Globulin 3.1 g/dL (2.4-3.5); Glucose 98 mg/dL (83-110); Hemoglobin 12.8 g/dL (14.0-18.0); Mean Corpuscular Hemoglobin 37.1 pg (27.0-31.0); Potassium 4.5 mmol/L (3.5-5.1); Protein, Total 7.2 g/dL (5.8-8.1); Red Blood Cell (RBC) Count 3.45 mill/uL (4.70-6.10); Sodium 135 mmol/L (136-145)
[2020-08-07 23:35] LABS: #Basophils 0.1 thou/uL (0.0-0.2); #Eosinphils 0.2 thou/uL (0.0-0.7); #Monocytes 0.4 thou/uL (0.11-0.59); #Neutrophils 2.8 thou/uL (1.40-6.50); %Basophils 1.1 % (0.0-1.0); %Lymphocytes 36.9 % (21.0-51.0); %Monocytes 7.1 % (0.0-10.0); %Neutrophils 51.9 % (42.0-75.0); MDiff Complete? YES; Macrocytosis MODERATE=16-30 cells (100X) (0-5/hpf); Mean Platelet Volume 8.7 fL (7.4-10.4); Platelet Count 86 thou/uL (130-400); Platelet Morphology Comment Appears Decreased; RBC Distribution Width 12.7 % (11.5-14.5); White Blood Cell (WBC) Count 5.3 thou/uL (4.8-10.8)
[2020-08-07] MEDS ORDERED: Oxymetazoline HCl 0.05% (30 ML BOT) ONE (23:55)
[2020-08-08] MEDS ORDERED: Nitroglycerin 2% Ointment 1 INCH/1 GM Packet ONE (00:12)
[2020-08-08 02:51] LABS: Troponin I 0.013 ng/mL (< 0.028)
[2020-08-08 05:23] LABS: Troponin I 0.012 ng/mL (< 0.028)
[2020-08-08] MEDS ORDERED: Ondansetron ODT 4 MG TAB PO PRN (06:08)
[2020-08-08] MEDS ORDERED: Nitroglycerin 0.4 MG TAB (25 Tab Bottle) SL PRN (06:08)
[2020-08-08] MEDS ORDERED: Ondansetron PF 4 MG/2 ML Vial IVP PRN (06:08)
[2020-08-08] MEDS ORDERED: Ondansetron PF 4 MG/2 ML Vial ONE (06:23)
[2020-08-08] MEDS ORDERED: Bisacodyl 5 MG TAB PO PRN (08:05)
[2020-08-08] MEDS ORDERED: Benzonatate 100 MG CAP PO PRN (08:05)
[2020-08-08] MEDS ORDERED: Loperamide HCl 2 MG CAP PO PRN (08:05)
[2020-08-08] MEDS ORDERED: Senokot S 8.6-50 MG TAB PO PRN (08:05)
[2020-08-08] MEDS ORDERED: hydrALAZINE 20 MG/ML VIAL SLOW IVP PRN (08:05)
[2020-08-08] MEDS ORDERED: HYDROcodone/Acetaminophen 5/325 mg Tablet PO PRN (08:05)
[2020-08-08] MEDS ORDERED: Cepastat Lozenges 1 LOZ PO PRN (08:05)
[2020-08-08] MEDS ORDERED: Loratadine 10 MG TAB PO PRN (08:05)
[2020-08-08] MEDS ORDERED: Sodium Chloride 0.65% Nasal 44 ML BOT EA NARE PRN (08:05)
[2020-08-08] MEDS ORDERED: Calcium Carbonate 500 MG ChewTAB PO PRN (08:05)
[2020-08-08] MEDS ORDERED: GUAIFENESIN SF SOLN 200 MG/10 ML UDCUP PO PRN (08:05)
[2020-08-08 08:44] LABS: SARS-CoV-2 PCR by NAA Not Detected (NotDetected)
[2020-08-08] MEDS ORDERED: Enoxaparin Sodium 40 MG/0.4 ML SYRINGE SC SCH ×2 (09:00)
[2020-08-08] MEDS ORDERED: Acetaminophen 325 MG TAB ONE (09:07)
[2020-08-08] MEDS ORDERED: Acetaminophen 325 MG Suppository ONE (09:07)
[2020-08-08] MEDS: Acetaminophen 325 MG TAB PO PRN (09:10)
[2020-08-08 14:16] VITALS: BMI 22.4
[2020-08-08] MEDS: Carvedilol 3.125 MG TAB PO SCH (16:01)
[2020-08-08] MEDS: ALPRAZolam 0.25 MG TAB PO SCH ×2 (16:01→20:35)
[2020-08-08] MEDS: Montelukast Sodium 10 mg Tablet PO SCH (20:35)
[2020-08-08] MEDS: Atorvastatin Calcium 40 MG TAB PO SCH (20:35)
[2020-08-08] MEDS: Fluticasone Propionate Nasal Spray 16 gm Bottle NASAL SCH (20:36)
[2020-08-08] MEDS ORDERED: PITAVASTATIN CALCIUM 4 MG PO SCH (21:00)
[2020-08-08] MEDS ORDERED: Ubidecarenone 50 MG CAP PO SCH (21:00)
[2020-08-08 22:13] LABS: Troponin I Less than 0.010 ng/mL (< 0.028)
[2020-08-09] MEDS: Levothyroxine Sodium 75 MCG TAB PO SCH (05:16)
[2020-08-09 05:40] LABS: #Eosinphils 0.2 thou/uL (0.0-0.7); #Lymphocytes 1.3 thou/uL (1.20-3.40); #Monocytes 0.6 thou/uL (0.11-0.59); #Neutrophils 3.9 thou/uL (1.40-6.50); %Basophils 0.7 % (0.0-1.0); %Lymphocytes 21.5 % (21.0-51.0); %Monocytes 9.3 % (0.0-10.0); %Neutrophils 65.6 % (42.0-75.0); Hemoglobin 11.9 g/dL (14.0-18.0); Mean Corpuscular HGB CONC 31.6 g/dL (32.0-36.0); Mean Corpuscular Hemoglobin 35.6 pg (27.0-31.0); Mean Platelet Volume 7.2 fL (7.4-10.4); Platelet Count 163 thou/uL (130-400); RBC Distribution Width 12.7 % (11.5-14.5); Red Blood Cell (RBC) Count 3.35 mill/uL (4.70-6.10)
[2020-08-09 06:44] LABS: Band 1 % (5-11); Eosinophils 1 % (0-10); Lymphocytes 20 % (21-51); MDiff Complete? YES; Macrocytosis SLIGHT = 6-15 cells (100X) (0-5/hpf); Monocytes 9 % (0-10); Neutrophil 68 % (42-75)
[2020-08-09] MEDS ORDERED: Regadenoson 0.4 MG/5 ML SYRINGE ONE (08:41)
[2020-08-09] MEDS: Carvedilol 3.125 MG TAB PO SCH ×2 (09:13→12:49)
[2020-08-09] MEDS: Aspirin 325 mg Enteric Coated Tablet PO SCH (12:48)
[2020-08-09] MEDS: Cyanocobalamin (Vitamin B-12) 1,000 MCG TAB PO SCH (12:49)
[2020-08-09] MEDS: Citalopram 20 MG TAB PO SCH (12:49)
[2020-08-09] MEDS: ALPRAZolam 0.25 MG TAB PO SCH ×3 (12:49→20:03)
[2020-08-09] MEDS: Tamsulosin HCl 0.4 MG CAP PO SCH (12:49)
[2020-08-09] MEDS: Fluticasone Propionate Nasal Spray 16 gm Bottle NASAL SCH ×2 (12:50→20:04)
[2020-08-09 17:30] LABS: Hemoglobin 11.4 g/dL (14.0-18.0)
[2020-08-09] MEDS ORDERED: Sodium Chloride 0.9% 500 ML IVPB SCH ×2 (19:15→19:45)
[2020-08-09] MEDS: Montelukast Sodium 10 mg Tablet PO SCH (20:04)
[2020-08-09] MEDS: Atorvastatin Calcium 40 MG TAB PO SCH (20:04)
[2020-08-09] MEDS: Acetaminophen 325 MG TAB PO PRN (20:04)
[2020-08-10] MEDS: Levothyroxine Sodium 75 MCG TAB PO SCH (05:10)
[2020-08-10] MEDS ORDERED: ALPRAZolam 0.25 MG TAB PO SCH (09:00)
[2020-08-10] MEDS: Cyanocobalamin (Vitamin B-12) 1,000 MCG TAB PO SCH (09:19)
[2020-08-10] MEDS: Fluticasone Propionate Nasal Spray 16 gm Bottle NASAL SCH (09:19)
[2020-08-10] MEDS: Tamsulosin HCl 0.4 MG CAP PO SCH (09:19)
[2020-08-10] MEDS: Citalopram 20 MG TAB PO SCH (09:19)
[2020-08-10] MEDS: Aspirin 325 mg Enteric Coated Tablet PO SCH (09:19)
[2020-08-10 17:05] VITALS: BP 148/70; TEMP 98
== END 2020-08-10 17:06 | disposition home or self-care (01) | DRG 313 ==
LOC: ERS 22:35 → ERHOLD 08-08 00:55 → 2NO 08-08 13:37 → OBSVTOIN 08-10 11:40
PROVIDERS: ADMIT Student in an Organized Health Care Education/Training Program; ATTEND Internal Medicine
DX: R07.89 Other chest pain (principal); I50.42 Chronic combined systolic (congestive) and diastolic (congestive) heart failure; Z20.822 Contact with and (suspected) exposure to COVID-19; E87.1 Hypo-osmolality and hyponatremia; I25.10 Atherosclerotic heart disease of native coronary artery without angina pectoris; E03.9 Hypothyroidism, unspecified; E78.00 Pure hypercholesterolemia, unspecified; I48.91 Unspecified atrial fibrillation; K21.9 Gastro-esophageal reflux disease without esophagitis; D53.9 Nutritional anemia, unspecified; E78.5 Hyperlipidemia, unspecified; I11.0 Hypertensive heart disease with heart failure; D69.6 Thrombocytopenia, unspecified; N40.0 Benign prostatic hyperplasia without lower urinary tract symptoms; F41.9 Anxiety disorder, unspecified; F32.9 Major depressive disorder, single episode, unspecified; I16.0 Hypertensive urgency; Z95.1 Presence of aortocoronary bypass graft; Z95.0 Presence of cardiac pacemaker; Z88.1 Allergy status to other antibiotic agents; Z88.0 Allergy status to penicillin; Z88.2 Allergy status to sulfonamides; Z88.8 Allergy status to other drugs, medicaments and biological substances; Z79.82 Long term (current) use of aspirin; Z79.899 Other long term (current) drug therapy; Z90.49 Acquired absence of other specified parts of digestive tract; Z87.891 Personal history of nicotine dependence
CPT/HCPCS: 36415; 71045; 78452; 80053; 80061; 81003; 83735; 83880; 84484; 85007; 85025; 85027; 87635; 93005; 93010; 93017; 94760; A9500; G0378; J2405; J2785; J7030; Q0162; U0003; U0005

== ENCOUNTER 2020-08-22 15:30 | Emergency (ER) | payer MEDICARE, MEDICAID ==
[~2020-08-22 15:30] MED LIST: Iopamidol-370 76% 500 ML 1 ML ONE
[2020-08-22 17:25] LABS: #Eosinphils 0.1 thou/uL (0.0-0.7); #Lymphocytes 1.4 thou/uL (1.20-3.40); #Monocytes 0.4 thou/uL (0.11-0.59); #Neutrophils 2.9 thou/uL (1.40-6.50); %Basophils 0.1 % (0.0-1.0); %Eosinophils 2.4 % (0.0-10.0); %Lymphocytes 29.6 % (21.0-51.0); %Monocytes 8.5 % (0.0-10.0); %Neutrophils 59.3 % (42.0-75.0); Hemoglobin 11.5 g/dL (14.0-18.0); Mean Corpuscular HGB CONC 32.4 g/dL (32.0-36.0); Mean Corpuscular Hemoglobin 36.3 pg (27.0-31.0); Mean Platelet Volume 7.2 fL (7.4-10.4); Platelet Count 177 thou/uL (130-400); RBC Distribution Width 12.2 % (11.5-14.5); Red Blood Cell (RBC) Count 3.17 mill/uL (4.70-6.10); White Blood Cell (WBC) Count 4.9 thou/uL (4.8-10.8)
[2020-08-22 17:43] LABS: ALT (SGPT) 11 U/L (8-55); AST (SGOT) 18 U/L (5-34); Albumin 3.8 g/dL (3.4-4.8); Alkaline Phosphatase 50 U/L (40-110); Anion Gap 11 mmol/L (10-20); BUN (Urea Nitrogen) 12 mg/dL (8.4-25.7); Bilirubin, Total 0.4 mg/dL (0.2-1.2); Calc. Creatinine Clearance 0 mL/min (70-130); Calcium 9.2 mg/dL (7.8-10.44); Carbon Dioxide 26 mmol/L (23-31); Chloride 102 mmol/L (98-107); Globulin 3.2 g/dL (2.4-3.5); Glucose 114 mg/dL (83-110); Potassium 4.1 mmol/L (3.5-5.1); Sodium 135 mmol/L (136-145)
[2020-08-22 18:13] LABS: Bilirubin Negative (Negative); Blood, Urine Negative (Negative); Clarity Clear (Clear); Glucose, Urine (Dipstick) Normal (Negative); Ketone, Urine Negative (Negative); Leukocyte Negative Leu/uL (Negative); Nitrite Negative (Negative); Protein, Urine (Dipstick) Negative (Neg-Trace); Specific Gravity, Urine 1.007 (1.002-1.036); Urobilinogen Normal mg/dL (Less than 2); pH, Urine 5.5 (5.0-9.0)
[2020-08-22] MEDS ORDERED: Famotidine/PF 20 mg/2ml Vial ONE (18:24)
[2020-08-22] MEDS ORDERED: diphenhydrAMINE 50 MG/ML VIAL ONE (18:24)
[2020-08-22] MEDS ORDERED: methylPREDNISolone Sod Succ/PF 125 MG/2 ML VIAL ONE (18:24)
[2020-08-22] MEDS ORDERED: Ondansetron PF 4 MG/2 ML Vial ONE (20:30)
== END 2020-08-22 23:00 | disposition home or self-care (01) ==
LOC: ERS 15:30
DX: R11.2 Nausea with vomiting, unspecified (principal); R53.1 Weakness; Z79.899 Other long term (current) drug therapy; Z79.82 Long term (current) use of aspirin; I48.91 Unspecified atrial fibrillation; K21.9 Gastro-esophageal reflux disease without esophagitis; E78.5 Hyperlipidemia, unspecified; E78.00 Pure hypercholesterolemia, unspecified; I25.10 Atherosclerotic heart disease of native coronary artery without angina pectoris; I10 Essential (primary) hypertension; Z87.891 Personal history of nicotine dependence
CPT/HCPCS: 36415; 74177; 80053; 81003; 83605; 83690; 84484; 85025; 93005; 96374; 96375; J1200; J2405; J2930; Q9967; S0028

== ENCOUNTER 2020-12-07 15:10 | Inpatient (IN) | payer MEDICARE, OTHER ==
[2020-12-07] MEDS ORDERED: Nitroglycerin 0.4 MG TAB 1 EACH ONE (15:45)
[2020-12-07] MEDS ORDERED: Aspirin Chewable 81 MG TAB ONE (15:45)
[2020-12-07] MEDS ORDERED: Nitroglycerin 2% Ointment 1 INCH/1 GM Packet ONE (15:45)
[2020-12-07 16:46] LABS: Bacteria/HPF None Seen HPF (None Seen); Bilirubin Negative (Negative); Blood, Urine Trace (Negative); Clarity Clear (Clear); Glucose, Urine (Dipstick) Normal (Negative); Ketone, Urine Negative (Negative); Leukocyte Negative Leu/uL (Negative); Nitrite Negative (Negative); Protein, Urine (Dipstick) Negative (Neg-Trace); RBC/HPF 0-3 HPF (0-3); Specific Gravity, Urine 1.017 (1.002-1.036); Squamous Epithelial 0-3 HPF (0-3); Urobilinogen 3 mg/dL (Less than 2); WBC/HPF 0-3 HPF (0-3); pH, Urine 6.5 (5.0-9.0)
[2020-12-07] MEDS ORDERED: Ondansetron PF 4 MG/2 ML Vial ONE (17:09)
[2020-12-07 17:53] LABS: #Lymphocytes 0.8 thou/uL (1.20-3.40); #Monocytes 0.3 thou/uL (0.11-0.59); #Neutrophils 2.8 thou/uL (1.40-6.50); %Eosinophils 0.9 % (0.0-10.0); %Lymphocytes 20.1 % (21.0-51.0); %Monocytes 8.3 % (0.0-10.0); %Neutrophils 70.7 % (42.0-75.0); Hemoglobin 10.6 g/dL (14.0-18.0); Mean Corpuscular HGB CONC 32.2 g/dL (32.0-36.0); Mean Corpuscular Hemoglobin 37.3 pg (27.0-31.0); Mean Platelet Volume 7.6 fL (7.4-10.4); Platelet Count 128 thou/uL (130-400); RBC Distribution Width 13.3 % (11.5-14.5); Red Blood Cell (RBC) Count 2.84 mill/uL (4.70-6.10); White Blood Cell (WBC) Count 3.9 thou/uL (4.8-10.8)
[2020-12-07 18:16] LABS: MDiff Complete? YES; Macrocytosis MODERATE=16-30 cells (100X) (0-5/hpf); Platelet Morphology Comment Appears Decreased
[2020-12-07 18:22] LABS: ALT (SGPT) 10 U/L (8-55); AST (SGOT) 23 U/L (5-34); Albumin 3.6 g/dL (3.4-4.8); Alkaline Phosphatase 40 U/L (40-110); Anion Gap 14 mmol/L (10-20); BUN (Urea Nitrogen) 15 mg/dL (8.4-25.7); Bilirubin, Total 0.8 mg/dL (0.2-1.2); Calc. Creatinine Clearance 0 mL/min (70-130); Calcium 8.7 mg/dL (7.8-10.44); Carbon Dioxide 24 mmol/L (23-31); Chloride 101 mmol/L (98-107); Globulin 2.7 g/dL (2.4-3.5); Glucose 102 mg/dL (83-110); Potassium 4.6 mmol/L (3.5-5.1); Protein, Total 6.3 g/dL (5.8-8.1); Sodium 134 mmol/L (136-145)
[2020-12-07] MEDS ORDERED: Furosemide 20 MG/2 ML VIAL ONE (19:11)
[2020-12-07 20:58] LABS: Troponin I Less than 0.010 ng/mL (< 0.028)
[2020-12-07] MEDS ORDERED: Ondansetron PF 4 MG/2 ML Vial IVP PRN (21:45)
[2020-12-07] MEDS ORDERED: Acetaminophen 325 MG TAB PO PRN (21:45)
[2020-12-07] MEDS ORDERED: Ondansetron ODT 4 MG TAB SL PRN (21:45)
[2020-12-07 21:52] LABS: SARS-CoV-2 NAA Rapid Test Not Detected (NotDetected)
[2020-12-07 22:21] VITALS: BMI 22.7
[2020-12-07 23:15] LABS: Troponin I 0.011 ng/mL (< 0.028)
[2020-12-07] MEDS: Benzonatate 100 MG CAP PO PRN (23:24)
[2020-12-08] MEDS ORDERED: guaiFENesin 200 MG TAB PO PRN (02:46)
[2020-12-08 04:52] LABS: #Eosinphils 0.1 thou/uL (0.0-0.7); #Lymphocytes 1.1 thou/uL (1.20-3.40); #Monocytes 0.7 thou/uL (0.11-0.59); #Neutrophils 3.9 thou/uL (1.40-6.50); %Basophils 0.7 % (0.0-1.0); %Eosinophils 1.5 % (0.0-10.0); %Lymphocytes 19.5 % (21.0-51.0); %Monocytes 11.1 % (0.0-10.0); %Neutrophils 67.2 % (42.0-75.0); Hemoglobin 10.4 g/dL (14.0-18.0); Mean Corpuscular HGB CONC 32.4 g/dL (32.0-36.0); Mean Corpuscular Hemoglobin 37.6 pg (27.0-31.0); Mean Platelet Volume 7.3 fL (7.4-10.4); Platelet Count 141 thou/uL (130-400); RBC Distribution Width 13.1 % (11.5-14.5); Red Blood Cell (RBC) Count 2.77 mill/uL (4.70-6.10); White Blood Cell (WBC) Count 5.8 thou/uL (4.8-10.8)
[2020-12-08] MEDS: Levothyroxine Sodium 75 MCG TAB PO SCH (05:13)
[2020-12-08 05:18] LABS: ALT (SGPT) 9 U/L (8-55); AST (SGOT) 14 U/L (5-34); Albumin 3.8 g/dL (3.4-4.8); Alkaline Phosphatase 44 U/L (40-110); Anion Gap 11 mmol/L (10-20); BUN (Urea Nitrogen) 13 mg/dL (8.4-25.7); Bilirubin, Direct 0.6 mg/dL (0.1-0.3); Bilirubin, Total 1.2 mg/dL (0.2-1.2); Calc. Creatinine Clearance 58 mL/min (70-130); Calcium 9.3 mg/dL (7.8-10.44); Carbon Dioxide 32 mmol/L (23-31); Chloride 97 mmol/L (98-107); Globulin 2.6 g/dL (2.4-3.5); Glucose 91 mg/dL (83-110); Magnesium 1.8 mg/dL (1.6-2.6); Protein, Total 6.4 g/dL (5.8-8.1); Sodium 136 mmol/L (136-145)
[2020-12-08 05:19] LABS: Troponin I Less than 0.010 ng/mL (< 0.028)
[2020-12-08] MEDS: Furosemide 20 MG/2 ML VIAL SLOW IVP SCH ×2 (05:34→15:04)
[2020-12-08] MEDS ORDERED: Furosemide 40 MG/4 ML VIAL SLOW IVP SCH (06:00)
[2020-12-08] MEDS: Cyanocobalamin (Vitamin B-12) 1,000 MCG TAB PO SCH (08:06)
[2020-12-08] MEDS: Aspirin 325 MG TAB PO SCH (08:06)
[2020-12-08] MEDS: Tamsulosin HCl 0.4 MG CAP PO SCH (08:06)
[2020-12-08] MEDS: Enoxaparin Sodium 40 MG/0.4 ML SYRINGE SC SCH (08:07)
[2020-12-08] MEDS: Montelukast Sodium 10 mg Tablet PO SCH (20:51)
[2020-12-08] MEDS: Atorvastatin Calcium 20 MG TAB PO SCH (20:51)
[2020-12-09] MEDS ORDERED: Acetaminophen 500 MG TAB PO SCH (03:30)
[2020-12-09] MEDS: Furosemide 20 MG/2 ML VIAL SLOW IVP SCH ×2 (05:34→15:20)
[2020-12-09] MEDS: Levothyroxine Sodium 75 MCG TAB PO SCH (05:34)
[2020-12-09 05:55] LABS: Troponin I Less than 0.010 ng/mL (< 0.028)
[2020-12-09 05:58] LABS: Cardiac Risk 1.6 (Less than 4.5)
[2020-12-09] MEDS: Enoxaparin Sodium 40 MG/0.4 ML SYRINGE SC SCH (09:16)
[2020-12-09] MEDS: Tamsulosin HCl 0.4 MG CAP PO SCH (09:16)
[2020-12-09] MEDS: Cyanocobalamin (Vitamin B-12) 1,000 MCG TAB PO SCH (09:16)
[2020-12-09] MEDS: Aspirin 325 MG TAB PO SCH (09:16)
[2020-12-09] MEDS: Acetaminophen 325 MG TAB PO PRN (15:20)
[2020-12-09] MEDS: Ondansetron ODT 4 MG TAB PO PRN (15:20)
[2020-12-09] MEDS: Montelukast Sodium 10 mg Tablet PO SCH (21:15)
[2020-12-09] MEDS: Atorvastatin Calcium 20 MG TAB PO SCH (21:15)
[2020-12-09] MEDS: Artificial Tear Sol 15 ML BOT EA EYE PRN (21:33)
[2020-12-10] MEDS: Acetaminophen 325 MG TAB PO PRN
[2020-12-10] MEDS: Levothyroxine Sodium 75 MCG TAB PO SCH (05:59)
[2020-12-10] MEDS: Furosemide 20 MG/2 ML VIAL SLOW IVP SCH ×2 (05:59→13:06)
[2020-12-10] MEDS: Tamsulosin HCl 0.4 MG CAP PO SCH (09:49)
[2020-12-10] MEDS: VOLTAREN 1% TOP SCH (09:49)
[2020-12-10] MEDS: Cyanocobalamin (Vitamin B-12) 1,000 MCG TAB PO SCH (09:49)
[2020-12-10] MEDS: Aspirin 325 MG TAB PO SCH (09:49)
[2020-12-10] MEDS: Enoxaparin Sodium 40 MG/0.4 ML SYRINGE SC SCH (09:49)
[2020-12-10] MEDS: Bisacodyl 5 MG TAB PO PRN (14:28)
[2020-12-10] MEDS: Ondansetron ODT 4 MG TAB PO PRN (14:28)
[2020-12-10] MEDS: Artificial Tear Sol 15 ML BOT EA EYE PRN (16:09)
[2020-12-10] MEDS ORDERED: Famotidine 20 MG TAB PO PRN (18:06)
[2020-12-10] MEDS: Montelukast Sodium 10 mg Tablet PO SCH (20:19)
[2020-12-10] MEDS: Atorvastatin Calcium 20 MG TAB PO SCH (20:19)
[2020-12-10] MEDS: Benzonatate 100 MG CAP PO PRN (20:22)
[2020-12-11] MEDS: Acetaminophen 325 MG TAB PO PRN (00:35)
[2020-12-11] MEDS: Levothyroxine Sodium 75 MCG TAB PO SCH (05:53)
[2020-12-11] MEDS: Furosemide 20 MG/2 ML VIAL SLOW IVP SCH (05:53)
[2020-12-11] MEDS: Bisacodyl 5 MG TAB PO PRN (05:53)
[2020-12-11] MEDS: Cyanocobalamin (Vitamin B-12) 1,000 MCG TAB PO SCH (09:20)
[2020-12-11] MEDS: VOLTAREN 1% TOP SCH (09:20)
[2020-12-11] MEDS: Aspirin 325 MG TAB PO SCH (09:20)
[2020-12-11] MEDS: Tamsulosin HCl 0.4 MG CAP PO SCH (09:20)
[2020-12-11] MEDS: Enoxaparin Sodium 40 MG/0.4 ML SYRINGE SC SCH (09:21)
[2020-12-11] MEDS: Ondansetron ODT 4 MG TAB PO PRN (13:39)
[2020-12-11] MEDS: Artificial Tear Sol 15 ML BOT EA EYE PRN (16:14)
[2020-12-11 17:24] VITALS: BP 110/78; TEMP 97.9
[2020-12-12] MEDS ORDERED: Furosemide 40 MG TAB PO SCH (07:30)
== END 2020-12-11 17:45 | disposition home or self-care (01) | DRG 291 ==
LOC: ERS 15:10 → 2NO 19:40
PROVIDERS: ADMIT Family Medicine; ATTEND Hospitalist
PROC: 4B02XSZ Measurement of Cardiac Pacemaker, External Approach (ICD-10-PCS; principal; 2020-12-11)
DX: I11.0 Hypertensive heart disease with heart failure (principal); J96.01 Acute respiratory failure with hypoxia; I50.43 Acute on chronic combined systolic (congestive) and diastolic (congestive) heart failure; Z20.822 Contact with and (suspected) exposure to COVID-19; I08.3 Combined rheumatic disorders of mitral, aortic and tricuspid valves; N40.0 Benign prostatic hyperplasia without lower urinary tract symptoms; I25.10 Atherosclerotic heart disease of native coronary artery without angina pectoris; F41.9 Anxiety disorder, unspecified; E03.9 Hypothyroidism, unspecified; K21.9 Gastro-esophageal reflux disease without esophagitis; E78.00 Pure hypercholesterolemia, unspecified; E78.5 Hyperlipidemia, unspecified; F34.1 Dysthymic disorder; F32.9 Major depressive disorder, single episode, unspecified; J44.9 Chronic obstructive pulmonary disease, unspecified; D53.9 Nutritional anemia, unspecified; D69.6 Thrombocytopenia, unspecified; I25.5 Ischemic cardiomyopathy; I44.7 Left bundle-branch block, unspecified; I48.0 Paroxysmal atrial fibrillation; Z95.1 Presence of aortocoronary bypass graft; Z87.891 Personal history of nicotine dependence; Z95.0 Presence of cardiac pacemaker; I25.2 Old myocardial infarction; Z90.49 Acquired absence of other specified parts of digestive tract; Z98.890 Other specified postprocedural states; Z88.1 Allergy status to other antibiotic agents; Z88.0 Allergy status to penicillin; Z88.2 Allergy status to sulfonamides; Z88.8 Allergy status to other drugs, medicaments and biological substances; Z91.09 Other allergy status, other than to drugs and biological substances; Z79.899 Other long term (current) drug therapy; Z79.890 Hormone replacement therapy; Z79.82 Long term (current) use of aspirin
CPT/HCPCS: 0240U; 36415; 71045; 80053; 80061; 80076; 81003; 81015; 83735; 83880; 84443; 84484; 85025; 93005; 93306; 93798; 96374; 96375; J1650; J1940; J2405; Q0162

== ENCOUNTER 2020-12-25 11:26 | Inpatient (IN) | payer MEDICARE, MEDICAID ==
[2020-12-25] MEDS ORDERED: Ondansetron PF 4 MG/2 ML Vial ONE ×2 (11:58→13:31)
[2020-12-25 12:07] LABS: #Lymphocytes 1.1 thou/uL (1.20-3.40); #Monocytes 0.8 thou/uL (0.11-0.59); #Neutrophils 5.9 thou/uL (1.40-6.50); %Basophils 0.4 % (0.0-1.0); %Eosinophils 0.5 % (0.0-10.0); %Lymphocytes 13.9 % (21.0-51.0); %Monocytes 9.8 % (0.0-10.0); %Neutrophils 75.4 % (42.0-75.0); Mean Corpuscular HGB CONC 33.4 g/dL (32.0-36.0); Mean Corpuscular Hemoglobin 38.1 pg (27.0-31.0); Mean Platelet Volume 7.3 fL (7.4-10.4); Platelet Count 243 thou/uL (130-400); RBC Distribution Width 12.6 % (11.5-14.5); Red Blood Cell (RBC) Count 2.61 mill/uL (4.70-6.10); White Blood Cell (WBC) Count 7.8 thou/uL (4.8-10.8)
[2020-12-25 12:09] LABS: Bilirubin Negative (Negative); Blood, Urine Negative (Negative); Clarity Clear (Clear); Glucose, Urine (Dipstick) Normal (Negative); Ketone, Urine Negative (Negative); Leukocyte Negative Leu/uL (Negative); Nitrite Negative (Negative); Protein, Urine (Dipstick) Negative (Neg-Trace); Urobilinogen Normal mg/dL (Less than 2)
[2020-12-25 12:30] LABS: ALT (SGPT) 19 U/L (8-55); AST (SGOT) 34 U/L (5-34); Albumin 3.7 g/dL (3.4-4.8); Alkaline Phosphatase 83 U/L (40-110); Anion Gap 13 mmol/L (10-20); BUN (Urea Nitrogen) 15 mg/dL (8.4-25.7); Bilirubin, Total 0.9 mg/dL (0.2-1.2); Calc. Creatinine Clearance 0 mL/min (70-130); Calcium 9.2 mg/dL (7.8-10.44); Carbon Dioxide 29 mmol/L (23-31); Chloride 88 mmol/L (98-107); Globulin 3.3 g/dL (2.4-3.5); Glucose 112 mg/dL (83-110); Lipase 14 U/L (8-78); Potassium 4.7 mmol/L (3.5-5.1); Sodium 125 mmol/L (136-145)
[2020-12-25] MEDS ORDERED: Promethazine HCl 25 MG/ML VIAL ONE (15:15)
[2020-12-25] MEDS ORDERED: Furosemide 40 MG/4 ML VIAL ONE (19:38)
[2020-12-25] MEDS ORDERED: Ipratropium Bromide 2.5 ml Neb ONE (19:53)
[2020-12-25 20:44] LABS: SARS-CoV-2 NAA Rapid Test Not Detected (NotDetected)
[2020-12-25] MEDS ORDERED: Acetaminophen 650 MG Suppository PR PRN (20:44)
[2020-12-25] MEDS ORDERED: hydrALAZINE 20 MG/ML VIAL SLOW IVP PRN (20:55)
[2020-12-25] MEDS ORDERED: Electrolyte Replacement Protocol 1 EACH FS SCH (21:00)
[2020-12-25] MEDS: Acetaminophen 325 MG TAB PO PRN (23:08)
[2020-12-25] MEDS: predniSONE 50 MG TAB PO SCH (23:21)
[2020-12-26 05:54] LABS: #Lymphocytes 0.3 thou/uL (1.20-3.40); #Monocytes 0.1 thou/uL (0.11-0.59); #Neutrophils 6.9 thou/uL (1.40-6.50); %Lymphocytes 3.6 % (21.0-51.0); %Monocytes 1.5 % (0.0-10.0); %Neutrophils 94.8 % (42.0-75.0); Mean Corpuscular HGB CONC 32.9 g/dL (32.0-36.0); Mean Corpuscular Hemoglobin 37.5 pg (27.0-31.0); Mean Platelet Volume 7.1 fL (7.4-10.4); Platelet Count 212 thou/uL (130-400); RBC Distribution Width 12.6 % (11.5-14.5); Red Blood Cell (RBC) Count 2.66 mill/uL (4.70-6.10); White Blood Cell (WBC) Count 7.2 thou/uL (4.8-10.8)
[2020-12-26] MEDS ORDERED: Furosemide 40 MG/4 ML VIAL SLOW IVP SCH (06:00)
[2020-12-26 06:08] LABS: Anion Gap 15 mmol/L (10-20); BUN (Urea Nitrogen) 14 mg/dL (8.4-25.7); Calc. Creatinine Clearance 71 mL/min (70-130); Calcium 9.1 mg/dL (7.8-10.44); Carbon Dioxide 29 mmol/L (23-31); Chloride 87 mmol/L (98-107); Glucose 124 mg/dL (83-110); Iron 48 ug/dL (65-175); Iron 51 ug/dL (65-175); Iron Binding Capacity, Total 288 mcg/dL (261-462); Iron Binding Capacity, Total 293 mcg/dL (261-462); Magnesium 1.6 mg/dL (1.6-2.6); Potassium 4.1 mmol/L (3.5-5.1); Sodium 127 mmol/L (136-145)
[2020-12-26] MEDS: predniSONE 50 MG TAB PO SCH ×2 (06:14→11:05)
[2020-12-26] MEDS ORDERED: Magnesium 2 GM/50 ML 2 GM in Premix Bag 1 BAG IVPB SCH (07:15)
[2020-12-26] MEDS ORDERED: diphenhydrAMINE 50 MG CAP PO SCH (11:00)
[2020-12-26] MEDS: Mometasone 200 MCG/Formoterol 5 MCG 120 PUFF INHALER INH SCH (16:58)
[2020-12-26] MEDS: methylPREDNISolone Sod Succ 40 MG VIAL IVP SCH (16:58)
[2020-12-26 19:32] LABS: Anion Gap 13 mmol/L (10-20); BUN (Urea Nitrogen) 17 mg/dL (8.4-25.7); Calc. Creatinine Clearance 68 mL/min (70-130); Calcium 9.6 mg/dL (7.8-10.44); Carbon Dioxide 37 mmol/L (23-31); Chloride 85 mmol/L (98-107); Glucose 141 mg/dL (83-110); Sodium 131 mmol/L (136-145)
[2020-12-26] MEDS: Montelukast Sodium 10 mg Tablet PO SCH (20:12)
[2020-12-26] MEDS: Atorvastatin Calcium 20 MG TAB PO SCH (20:12)
[2020-12-26] MEDS: Ondansetron PF 4 MG/2 ML Vial IVP PRN (20:13)
[2020-12-26] MEDS: Acetaminophen 325 MG TAB PO PRN (20:14)
[2020-12-26] MEDS: Bisacodyl 10 MG SUPP PR SCH (20:33)
[2020-12-26] MEDS ORDERED: Ubidecarenone 50 MG CAP PO SCH (21:00)
[2020-12-27] MEDS: Acetaminophen 325 MG TAB PO PRN ×2 (00:28→21:27)
[2020-12-27] MEDS: methylPREDNISolone Sod Succ 40 MG VIAL IVP SCH ×4 (00:28→18:03)
[2020-12-27] MEDS: Melatonin 3 MG TAB PO PRN (01:54)
[2020-12-27] MEDS ORDERED: ALPRAZolam 1 MG TAB PO SCH (02:00)
[2020-12-27 05:46] LABS: #Lymphocytes 0.3 thou/uL (1.20-3.40); #Monocytes 0.3 thou/uL (0.11-0.59); #Neutrophils 12.4 thou/uL (1.40-6.50); %Eosinophils 0.1 % (0.0-10.0); %Lymphocytes 2.2 % (21.0-51.0); %Monocytes 2.2 % (0.0-10.0); %Neutrophils 95.5 % (42.0-75.0); Hemoglobin 9.6 g/dL (14.0-18.0); Mean Corpuscular Hemoglobin 37.7 pg (27.0-31.0); Platelet Count 245 thou/uL (130-400); RBC Distribution Width 12.8 % (11.5-14.5); Red Blood Cell (RBC) Count 2.55 mill/uL (4.70-6.10)
[2020-12-27 06:03] LABS: Anion Gap 13 mmol/L (10-20); BUN (Urea Nitrogen) 21 mg/dL (8.4-25.7); CRP (Inflammatory) 3.79 mg/dL (= or < 0.5); Calc. Creatinine Clearance 61 mL/min (70-130); Calcium 9.2 mg/dL (7.8-10.44); Carbon Dioxide 35 mmol/L (23-31); Chloride 86 mmol/L (98-107); Glucose 174 mg/dL (83-110); Potassium 3.9 mmol/L (3.5-5.1); Sodium 130 mmol/L (136-145)
[2020-12-27] MEDS: Levothyroxine Sodium 75 MCG TAB PO SCH (06:08)
[2020-12-27 06:12] LABS: Magnesium 2.1 mg/dL (1.6-2.6)
[2020-12-27 08:11] LABS: ALT (SGPT) 26 U/L (8-55); AST (SGOT) 31 U/L (5-34); Albumin 3.5 g/dL (3.4-4.8); Alkaline Phosphatase 71 U/L (40-110); Bilirubin, Direct 0.5 mg/dL (0.1-0.3); Bilirubin, Total 0.9 mg/dL (0.2-1.2); Protein, Total 6.3 g/dL (5.8-8.1)
[2020-12-27] MEDS: Cyanocobalamin (Vitamin B-12) 1,000 MCG TAB PO SCH (08:53)
[2020-12-27] MEDS: Aspirin 81 mg Enteric Coated Tablet PO SCH (08:53)
[2020-12-27] MEDS: Potassium Chloride 10 MEQ TAB PO SCH (08:54)
[2020-12-27] MEDS: Polyethylene Glycol 3350 17 GM Packet PO SCH (08:54)
[2020-12-27] MEDS: Tamsulosin HCl 0.4 MG CAP PO SCH (08:54)
[2020-12-27] MEDS ORDERED: Aspirin 325 MG TAB PO SCH (09:00)
[2020-12-27] MEDS ORDERED: Polyethylene Glycol 3350 17 GM Packet PO SCH (09:00)
[2020-12-27] MEDS: Furosemide 40 MG/4 ML VIAL SLOW IVP SCH (09:15)
[2020-12-27] MEDS: Mometasone 200 MCG/Formoterol 5 MCG 120 PUFF INHALER INH SCH ×2 (09:20→18:03)
[2020-12-27] MEDS ORDERED: Apixaban 2.5 MG TAB PO SCH ×2 (10:15→21:00)
[2020-12-27] MEDS: Bisacodyl 10 MG SUPP PR SCH (11:29)
[2020-12-27 16:43] LABS: BUN (Urea Nitrogen) 21 mg/dL (8.4-25.7); Calc. Creatinine Clearance 62 mL/min (70-130); Calcium 9.3 mg/dL (7.8-10.44); Glucose 178 mg/dL (83-110)
[2020-12-27 16:52] LABS: Anion Gap 17 mmol/L (10-20); Carbon Dioxide 33 mmol/L (23-31); Chloride 85 mmol/L (98-107); Potassium 4.2 mmol/L (3.5-5.1); Sodium 131 mmol/L (136-145)
[2020-12-27] MEDS ORDERED: Cosyntropin 250 MCG VIAL SLOW IVP SCH (20:00)
[2020-12-27] MEDS ORDERED: Fleet Enema 133 ML BOT PR SCH (21:00)
[2020-12-27] MEDS: Atorvastatin Calcium 20 MG TAB PO SCH (21:24)
[2020-12-27] MEDS: Montelukast Sodium 10 mg Tablet PO SCH (21:24)
[2020-12-28] MEDS: methylPREDNISolone Sod Succ 40 MG VIAL IVP SCH ×2 (01:32→05:59)
[2020-12-28] MEDS: Levothyroxine Sodium 75 MCG TAB PO SCH (03:29)
[2020-12-28 05:21] LABS: #Lymphocytes 0.3 thou/uL (1.20-3.40); #Monocytes 0.5 thou/uL (0.11-0.59); #Neutrophils 12.4 thou/uL (1.40-6.50); %Eosinophils 0.1 % (0.0-10.0); %Lymphocytes 1.9 % (21.0-51.0); %Monocytes 3.4 % (0.0-10.0); %Neutrophils 94.6 % (42.0-75.0); Mean Corpuscular HGB CONC 32.9 g/dL (32.0-36.0); Mean Corpuscular Hemoglobin 37.8 pg (27.0-31.0); Mean Platelet Volume 6.8 fL (7.4-10.4); Platelet Count 248 thou/uL (130-400); RBC Distribution Width 13.2 % (11.5-14.5); Red Blood Cell (RBC) Count 2.37 mill/uL (4.70-6.10); White Blood Cell (WBC) Count 13.1 thou/uL (4.8-10.8)
[2020-12-28 05:37] LABS: BUN (Urea Nitrogen) 24 mg/dL (8.4-25.7); Calc. Creatinine Clearance 64 mL/min (70-130); Calcium 9.3 mg/dL (7.8-10.44); Glucose 151 mg/dL (83-110); Magnesium 2.2 mg/dL (1.6-2.6)
[2020-12-28 05:47] LABS: Anion Gap 11 mmol/L (10-20); Carbon Dioxide 37 mmol/L (23-31); Chloride 88 mmol/L (98-107); Sodium 132 mmol/L (136-145)
[2020-12-28] MEDS: Mometasone 200 MCG/Formoterol 5 MCG 120 PUFF INHALER INH SCH ×2 (08:49→19:26)
[2020-12-28] MEDS ORDERED: predniSONE 20 MG TAB PO SCH (09:45)
[2020-12-28] MEDS ORDERED: PHENYLEPHRINE-NS 100 MCG/ML 10 ML SYRINGE ONE (11:17)
[2020-12-28] MEDS ORDERED: PROPOFOL 200 MG/20 ML VIAL ONE (11:17)
[2020-12-28] MEDS ORDERED: Lidocaine 1% PF 5 ML VIAL ONE (11:17)
[2020-12-28] MEDS: Aspirin 81 mg Enteric Coated Tablet PO SCH (12:52)
[2020-12-28] MEDS: Tamsulosin HCl 0.4 MG CAP PO SCH (12:53)
[2020-12-28] MEDS: Polyethylene Glycol 3350 17 GM Packet PO SCH (12:54)
[2020-12-28] MEDS: Potassium Chloride 10 MEQ TAB PO SCH (12:54)
[2020-12-28] MEDS: Cyanocobalamin (Vitamin B-12) 1,000 MCG TAB PO SCH (12:54)
[2020-12-28] MEDS: Furosemide 40 MG/4 ML VIAL SLOW IVP SCH (12:55)
[2020-12-28] MEDS: Acetaminophen 325 MG TAB PO PRN (14:49)
[2020-12-28] MEDS: Ondansetron ODT 4 MG TAB PO PRN (16:13)
[2020-12-28] MEDS: Montelukast Sodium 10 mg Tablet PO SCH (20:45)
[2020-12-29] MEDS: Ondansetron PF 4 MG/2 ML Vial IVP PRN ×2 (00:52→09:51)
[2020-12-29] MEDS ORDERED: Benzonatate 100 MG CAP PO PRN (02:24)
[2020-12-29] MEDS: Guaifenesin DM 100-10/5 ML UDCUP PO PRN ×2 (02:44→11:45)
[2020-12-29 04:53] LABS: #Lymphocytes 0.4 thou/uL (1.20-3.40); #Monocytes 1.4 thou/uL (0.11-0.59); #Neutrophils 16.5 thou/uL (1.40-6.50); %Eosinophils 0.2 % (0.0-10.0); %Lymphocytes 2.1 % (21.0-51.0); %Monocytes 7.4 % (0.0-10.0); %Neutrophils 90.4 % (42.0-75.0); Hemoglobin 9.3 g/dL (14.0-18.0); Mean Corpuscular HGB CONC 33.4 g/dL (32.0-36.0); Mean Corpuscular Hemoglobin 38.6 pg (27.0-31.0); Platelet Count 213 thou/uL (130-400); RBC Distribution Width 13.5 % (11.5-14.5); Red Blood Cell (RBC) Count 2.42 mill/uL (4.70-6.10); White Blood Cell (WBC) Count 18.3 thou/uL (4.8-10.8)
[2020-12-29 05:10] LABS: BUN (Urea Nitrogen) 24 mg/dL (8.4-25.7); Calc. Creatinine Clearance 65 mL/min (70-130); Calcium 9.5 mg/dL (7.8-10.44); Glucose 140 mg/dL (83-110)
[2020-12-29 05:19] LABS: Anion Gap 17 mmol/L (10-20); Carbon Dioxide 34 mmol/L (23-31); Chloride 88 mmol/L (98-107); Potassium 3.9 mmol/L (3.5-5.1); Sodium 135 mmol/L (136-145)
[2020-12-29] MEDS: Mometasone 200 MCG/Formoterol 5 MCG 120 PUFF INHALER INH SCH ×2 (06:36→18:35)
[2020-12-29] MEDS: Levothyroxine Sodium 75 MCG TAB PO SCH (06:55)
[2020-12-29] MEDS: Tamsulosin HCl 0.4 MG CAP PO SCH (09:08)
[2020-12-29] MEDS: Potassium Chloride 10 MEQ TAB PO SCH (09:08)
[2020-12-29] MEDS: Furosemide 40 MG/4 ML VIAL SLOW IVP SCH (09:08)
[2020-12-29] MEDS: Aspirin 81 mg Enteric Coated Tablet PO SCH (09:08)
[2020-12-29] MEDS: Cyanocobalamin (Vitamin B-12) 1,000 MCG TAB PO SCH (09:08)
[2020-12-29] MEDS: Apixaban 2.5 MG TAB PO SCH ×2 (09:09→20:40)
[2020-12-29] MEDS: Polyethylene Glycol 3350 17 GM Packet PO SCH (09:10)
[2020-12-29] MEDS: Senokot S 8.6-50 MG TAB PO SCH ×2 (09:11→20:40)
[2020-12-29] MEDS ORDERED: Melatonin 3 MG TAB PO PRN (18:03)
[2020-12-29] MEDS: Acetaminophen 325 MG TAB PO PRN (20:39)
[2020-12-29] MEDS: hydrOXYzine 10 MG TAB PO PRN (20:39)
[2020-12-29] MEDS: Melatonin 3 MG TAB PO PRN (20:40)
[2020-12-29] MEDS: Montelukast Sodium 10 mg Tablet PO SCH (20:41)
[2020-12-30 05:27] LABS: #Lymphocytes 0.5 thou/uL (1.20-3.40); #Neutrophils 10.4 thou/uL (1.40-6.50); %Eosinophils 0.1 % (0.0-10.0); %Lymphocytes 4.4 % (21.0-51.0); %Monocytes 8.3 % (0.0-10.0); %Neutrophils 87.2 % (42.0-75.0); Hemoglobin 9.5 g/dL (14.0-18.0); Mean Corpuscular HGB CONC 31.1 g/dL (32.0-36.0); Mean Corpuscular Hemoglobin 36.2 pg (27.0-31.0); Mean Platelet Volume 6.9 fL (7.4-10.4); Platelet Count 221 thou/uL (130-400); RBC Distribution Width 13.5 % (11.5-14.5); Red Blood Cell (RBC) Count 2.63 mill/uL (4.70-6.10); White Blood Cell (WBC) Count 11.9 thou/uL (4.8-10.8)
[2020-12-30] MEDS: Levothyroxine Sodium 75 MCG TAB PO SCH (05:33)
[2020-12-30 05:47] LABS: BUN (Urea Nitrogen) 23 mg/dL (8.4-25.7); Calc. Creatinine Clearance 66 mL/min (70-130); Calcium 9.3 mg/dL (7.8-10.44); Glucose 109 mg/dL (83-110)
[2020-12-30 05:56] LABS: Anion Gap 15 mmol/L (10-20); Carbon Dioxide 37 mmol/L (23-31); Chloride 88 mmol/L (98-107); Sodium 136 mmol/L (136-145)
[2020-12-30] MEDS: Mometasone 200 MCG/Formoterol 5 MCG 120 PUFF INHALER INH SCH ×2 (08:45→17:19)
[2020-12-30] MEDS: Potassium Chloride 10 MEQ TAB PO SCH (09:17)
[2020-12-30] MEDS: Cyanocobalamin (Vitamin B-12) 1,000 MCG TAB PO SCH (09:17)
[2020-12-30] MEDS: Aspirin 81 mg Enteric Coated Tablet PO SCH (09:18)
[2020-12-30] MEDS: Furosemide 40 MG/4 ML VIAL SLOW IVP SCH (09:18)
[2020-12-30] MEDS: Apixaban 2.5 MG TAB PO SCH ×2 (09:18→20:49)
[2020-12-30] MEDS: Senokot S 8.6-50 MG TAB PO SCH ×2 (09:19→20:48)
[2020-12-30] MEDS: Polyethylene Glycol 3350 17 GM Packet PO SCH ×2 (09:19→09:28)
[2020-12-30] MEDS: Tamsulosin HCl 0.4 MG CAP PO SCH (09:23)
[2020-12-30] MEDS: Ondansetron ODT 4 MG TAB PO PRN (10:01)
[2020-12-30] MEDS: Ondansetron PF 4 MG/2 ML Vial IVP PRN (12:59)
[2020-12-30] MEDS: Carvedilol 3.125 MG TAB PO SCH ×2 (16:42→16:45)
[2020-12-30] MEDS: Digoxin 0.5 MG/2 ML AMP SLOW IVP SCH ×2 (17:30→23:59)
[2020-12-30 18:11] LABS: BUN (Urea Nitrogen) 25 mg/dL (8.4-25.7); Calc. Creatinine Clearance 60 mL/min (70-130); Calcium 9.3 mg/dL (7.8-10.44); Glucose 119 mg/dL (83-110)
[2020-12-30 18:20] LABS: Anion Gap 18 mmol/L (10-20); Carbon Dioxide 36 mmol/L (23-31); Chloride 86 mmol/L (98-107); Potassium 4.1 mmol/L (3.5-5.1); Sodium 136 mmol/L (136-145)
[2020-12-30] MEDS: Montelukast Sodium 10 mg Tablet PO SCH (20:49)
[2020-12-31] MEDS ORDERED: Famotidine 20 MG TAB PO SCH (01:30)
[2020-12-31] MEDS: Levothyroxine Sodium 75 MCG TAB PO SCH (05:23)
[2020-12-31] MEDS: Mometasone 200 MCG/Formoterol 5 MCG 120 PUFF INHALER INH SCH ×2 (06:57→20:19)
[2020-12-31] MEDS: Cyanocobalamin (Vitamin B-12) 1,000 MCG TAB PO SCH (08:46)
[2020-12-31] MEDS: Apixaban 2.5 MG TAB PO SCH ×2 (08:46→20:50)
[2020-12-31] MEDS: Aspirin 81 mg Enteric Coated Tablet PO SCH (08:46)
[2020-12-31] MEDS: Famotidine 20 MG TAB PO SCH ×2 (08:47→20:52)
[2020-12-31] MEDS: Senokot S 8.6-50 MG TAB PO SCH ×2 (08:47→20:49)
[2020-12-31] MEDS: Potassium Chloride 10 MEQ TAB PO SCH (08:47)
[2020-12-31] MEDS: Polyethylene Glycol 3350 17 GM Packet PO SCH (08:48)
[2020-12-31] MEDS: Tamsulosin HCl 0.4 MG CAP PO SCH (08:48)
[2020-12-31] MEDS ORDERED: Lisinopril 2.5 MG TAB PO SCH (09:00)
[2020-12-31] MEDS ORDERED: Furosemide 20 MG/2 ML VIAL SLOW IVP SCH (09:00)
[2020-12-31 09:08] LABS: Anion Gap 13 mmol/L (10-20); BUN (Urea Nitrogen) 21 mg/dL (8.4-25.7); Calc. Creatinine Clearance 69 mL/min (70-130); Carbon Dioxide 36 mmol/L (23-31); Chloride 89 mmol/L (98-107); Glucose 93 mg/dL (83-110); Potassium 3.9 mmol/L (3.5-5.1); Sodium 134 mmol/L (136-145)
[2020-12-31 09:17] LABS: #Eosinphils 0.2 thou/uL (0.0-0.7); #Lymphocytes 0.8 thou/uL (1.20-3.40); #Monocytes 1.2 thou/uL (0.11-0.59); #Neutrophils 7.6 thou/uL (1.40-6.50); %Eosinophils 1.6 % (0.0-10.0); %Lymphocytes 7.9 % (21.0-51.0); %Neutrophils 78.4 % (42.0-75.0); Hemoglobin 9.7 g/dL (14.0-18.0); Mean Corpuscular HGB CONC 32.7 g/dL (32.0-36.0); Mean Corpuscular Hemoglobin 38.2 pg (27.0-31.0); Mean Platelet Volume 7.3 fL (7.4-10.4); Platelet Count 200 thou/uL (130-400); Red Blood Cell (RBC) Count 2.53 mill/uL (4.70-6.10); White Blood Cell (WBC) Count 9.7 thou/uL (4.8-10.8)
[2020-12-31] MEDS: Ondansetron PF 4 MG/2 ML Vial IVP PRN ×2 (09:43→18:02)
[2020-12-31] MEDS: Acetaminophen 325 MG TAB PO PRN (20:50)
[2020-12-31] MEDS: Montelukast Sodium 10 mg Tablet PO SCH (22:36)
[2021-01-01 05:23] LABS: BUN (Urea Nitrogen) 23 mg/dL (8.4-25.7); Calc. Creatinine Clearance 66 mL/min (70-130); Calcium 9.3 mg/dL (7.8-10.44); Glucose 127 mg/dL (83-110)
[2021-01-01 05:32] LABS: Anion Gap 9 mmol/L (10-20); Chloride 88 mmol/L (98-107); Potassium 3.9 mmol/L (3.5-5.1); Sodium 135 mmol/L (136-145)
[2021-01-01 05:36] LABS: Carbon Dioxide 42 mmol/L (23-31)
[2021-01-01] MEDS: Levothyroxine Sodium 75 MCG TAB PO SCH (06:20)
[2021-01-01] MEDS: methylPREDNISolone Sod Succ 40 MG VIAL IVP SCH ×3 (06:59→22:16)
[2021-01-01] MEDS: Mometasone 200 MCG/Formoterol 5 MCG 120 PUFF INHALER INH SCH ×2 (08:37→20:14)
[2021-01-01] MEDS: AcetaZOLAMIDE 250 MG TAB PO SCH ×2 (09:05→22:13)
[2021-01-01] MEDS: Famotidine 20 MG TAB PO SCH ×2 (09:06→22:14)
[2021-01-01] MEDS: Cyanocobalamin (Vitamin B-12) 1,000 MCG TAB PO SCH (09:06)
[2021-01-01] MEDS: Aspirin 81 mg Enteric Coated Tablet PO SCH (09:06)
[2021-01-01] MEDS: Potassium Chloride 10 MEQ TAB PO SCH (09:06)
[2021-01-01] MEDS: Tamsulosin HCl 0.4 MG CAP PO SCH (09:06)
[2021-01-01] MEDS: Senokot S 8.6-50 MG TAB PO SCH (09:06)
[2021-01-01] MEDS: Apixaban 2.5 MG TAB PO SCH ×2 (09:06→22:14)
[2021-01-01] MEDS: Polyethylene Glycol 3350 17 GM Packet PO SCH (09:07)
[2021-01-01] MEDS: Ondansetron PF 4 MG/2 ML Vial IVP PRN ×3 (09:11→23:11)
[2021-01-01] MEDS: Montelukast Sodium 10 mg Tablet PO SCH (22:15)
[2021-01-01] MEDS: hydrOXYzine 10 MG TAB PO PRN (22:16)
[2021-01-02] MEDS: Melatonin 3 MG TAB PO PRN (00:53)
[2021-01-02] MEDS: Ondansetron ODT 4 MG TAB PO PRN (00:53)
[2021-01-02] MEDS: Acetaminophen 325 MG TAB PO PRN (00:56)
[2021-01-02] MEDS: methylPREDNISolone Sod Succ 40 MG VIAL IVP SCH ×2 (05:27→14:33)
[2021-01-02] MEDS: Senokot S 8.6-50 MG TAB PO SCH ×2 (05:28→09:16)
[2021-01-02] MEDS: Levothyroxine Sodium 75 MCG TAB PO SCH (05:28)
[2021-01-02] MEDS: Mometasone 200 MCG/Formoterol 5 MCG 120 PUFF INHALER INH SCH (08:06)
[2021-01-02] MEDS ORDERED: Pantoprazole 40 MG GRANULES PACKET PO SCH (09:00)
[2021-01-02] MEDS: Aspirin 81 mg Enteric Coated Tablet PO SCH (09:13)
[2021-01-02] MEDS: AcetaZOLAMIDE 250 MG TAB PO SCH (09:13)
[2021-01-02] MEDS: Potassium Chloride 10 MEQ TAB PO SCH (09:15)
[2021-01-02] MEDS: Apixaban 2.5 MG TAB PO SCH (09:16)
[2021-01-02] MEDS: Tamsulosin HCl 0.4 MG CAP PO SCH (09:17)
[2021-01-02] MEDS: Famotidine 20 MG TAB PO SCH (09:18)
[2021-01-02] MEDS: Cyanocobalamin (Vitamin B-12) 1,000 MCG TAB PO SCH (09:19)
[2021-01-02] MEDS: Polyethylene Glycol 3350 17 GM Packet PO SCH (09:20)
[2021-01-02] MEDS: Ondansetron PF 4 MG/2 ML Vial IVP PRN (09:56)
[2021-01-02 13:46] VITALS: BMI 22.4
[2021-01-02 14:47] LABS: SARS-CoV-2 PCR by NAA Not Detected (NotDetected)
[2021-01-02 16:07] VITALS: BP 116/60; TEMP 97.4
== END 2021-01-02 17:05 | disposition home health service (06) | DRG 291 ==
LOC: ERS 11:26 → ERHOLD 18:07 → 3SE 21:03 → OBSVTOIN 12-27 12:48
PROVIDERS: ADMIT Internal Medicine; ATTEND Internal Medicine
PROC: 0DB68ZX Excision of Stomach, Via Natural or Artificial Opening Endoscopic, Diagnostic (ICD-10-PCS; principal; 2020-12-28)
DX: I11.0 Hypertensive heart disease with heart failure (principal); J96.21 Acute and chronic respiratory failure with hypoxia; E22.2 Syndrome of inappropriate secretion of antidiuretic hormone; E87.4 Mixed disorder of acid-base balance; J44.1 Chronic obstructive pulmonary disease with (acute) exacerbation; Z20.822 Contact with and (suspected) exposure to COVID-19; I50.43 Acute on chronic combined systolic (congestive) and diastolic (congestive) heart failure; J84.10 Pulmonary fibrosis, unspecified; F41.9 Anxiety disorder, unspecified; F32.9 Major depressive disorder, single episode, unspecified; N40.0 Benign prostatic hyperplasia without lower urinary tract symptoms; I25.10 Atherosclerotic heart disease of native coronary artery without angina pectoris; E03.9 Hypothyroidism, unspecified; D53.9 Nutritional anemia, unspecified; K31.89 Other diseases of stomach and duodenum; K44.9 Diaphragmatic hernia without obstruction or gangrene; R91.8 Other nonspecific abnormal finding of lung field; I35.0 Nonrheumatic aortic (valve) stenosis; E78.5 Hyperlipidemia, unspecified; J40 Bronchitis, not specified as acute or chronic; K21.9 Gastro-esophageal reflux disease without esophagitis; E78.00 Pure hypercholesterolemia, unspecified; M79.7 Fibromyalgia; K59.09 Other constipation; I48.0 Paroxysmal atrial fibrillation; E83.42 Hypomagnesemia; T50.1X5A Adverse effect of loop [high-ceiling] diuretics, initial encounter; Z88.0 Allergy status to penicillin; Z88.2 Allergy status to sulfonamides; Z88.8 Allergy status to other drugs, medicaments and biological substances; Z88.1 Allergy status to other antibiotic agents; Z91.041 Radiographic dye allergy status; Z99.81 Dependence on supplemental oxygen; Z95.1 Presence of aortocoronary bypass graft; Z79.899 Other long term (current) drug therapy; Z79.82 Long term (current) use of aspirin; Z79.01 Long term (current) use of anticoagulants; Z79.890 Hormone replacement therapy; Z79.02 Long term (current) use of antithrombotics/antiplatelets; Z95.0 Presence of cardiac pacemaker; Z90.49 Acquired absence of other specified parts of digestive tract; Z95.828 Presence of other vascular implants and grafts; Z87.891 Personal history of nicotine dependence; Z82.49 Family history of ischemic heart disease and other diseases of the circulatory system; Z95.5 Presence of coronary angioplasty implant and graft; I25.2 Old myocardial infarction
CPT/HCPCS: 0240U; 36415; 71045; 71275; 74176; 80048; 80053; 80076; 80400; 81003; 82607; 82728; 82746; 83540; 83550; 83605; 83690; 83735; 83880; 83930; 83935; 84484; 85025; 86140; 88305; 88342; 93005; 93798; 94640; 94760; 96365; 96375; 96376; G0378; J0834; J1160; J1940; J2405; J2550; J2704; J2920; J3475; J7512; J7620; Q0162; U0003; U0005

== ENCOUNTER 2021-01-04 01:50 | Inpatient (IN) | payer MEDICARE, MEDICAID ==
[2021-01-04] MEDS ORDERED: methylPREDNISolone Sod Succ/PF 125 MG/2 ML VIAL ONE (03:34)
[2021-01-04] MEDS ORDERED: Famotidine/PF 20 mg/2ml Vial ONE (03:34)
[2021-01-04] MEDS ORDERED: diphenhydrAMINE 50 MG/ML VIAL ONE (03:34)
[2021-01-04 03:35] LABS: Hemoglobin 8.6 g/dL (14.0-18.0); Mean Corpuscular HGB CONC 32.2 g/dL (32.0-36.0); Mean Corpuscular Hemoglobin 37.3 pg (27.0-31.0); Mean Platelet Volume 7.5 fL (7.4-10.4); Platelet Count 346 thou/uL (130-400); RBC Distribution Width 13.6 % (11.5-14.5); Red Blood Cell (RBC) Count 2.31 mill/uL (4.70-6.10)
[2021-01-04 03:52] LABS: Band 5 % (5-11); Hypochromia SLIGHT = 6-15 cells (100X) (0-5/hpf); Lymphocytes 2 % (21-51); MDiff Complete? YES; Macrocytosis SLIGHT = 6-15 cells (100X) (0-5/hpf); Metamyelocyte 1 % (0-0); Monocytes 16 % (0-10); Neutrophil 76 % (42-75); Platelet Morphology Comment Appears Adequate
[2021-01-04] MEDS ORDERED: cefTRIAXone\\ROCEPHIN 2 GM VIAL ONE (04:15)
[2021-01-04 04:17] LABS: CKMB 2.5 ng/mL (0-6.6)
[2021-01-04] MEDS ORDERED: Cefepime 2 GM VIAL ONE (04:34)
[2021-01-04 04:41] LABS: INR-International Normal Ratio 1.3; Prothrombin Time 15.7 sec (12.0-14.7)
[2021-01-04 04:42] LABS: PTT 36.2 sec (22.9-36.1)
[2021-01-04 04:49] LABS: Bilirubin Negative (Negative); Blood, Urine Negative (Negative); Clarity Turbid (Clear); Glucose, Urine (Dipstick) Normal (Negative); Ketone, Urine Negative (Negative); Leukocyte Negative Leu/uL (Negative); Nitrite Negative (Negative); Protein, Urine (Dipstick) Negative (Neg-Trace); Specific Gravity, Urine 1.012 (1.002-1.036); Urobilinogen 3 mg/dL (Less than 2); pH, Urine 8.5 (5.0-9.0)
[2021-01-04 04:54] LABS: ALT (SGPT) 32 U/L (8-55); AST (SGOT) 28 U/L (5-34); Albumin 3.4 g/dL (3.4-4.8); Alkaline Phosphatase 73 U/L (40-110); Anion Gap 11 mmol/L (10-20); BUN (Urea Nitrogen) 31 mg/dL (8.4-25.7); Bilirubin, Total 1.3 mg/dL (0.2-1.2); Calc. Creatinine Clearance 0 mL/min (70-130); Calcium 9.4 mg/dL (7.8-10.44); Carbon Dioxide 32 mmol/L (23-31); Chloride 97 mmol/L (98-107); Globulin 2.6 g/dL (2.4-3.5); Glucose 113 mg/dL (83-110); Sodium 137 mmol/L (136-145)
[2021-01-04] MEDS ORDERED: VANCOMYCIN 1.75 GM/350 ML BAG 1.75 GM in Premix Bag 1 BAG IVPB SCH (05:30)
[2021-01-04] MEDS ORDERED: Potassium Chloride 20 MEQ TAB ONE (05:43)
[2021-01-04 06:31] LABS: Magnesium 1.9 mg/dL (1.6-2.6)
[2021-01-04] MEDS ORDERED: Potassium Chloride 20 MEQ TAB PO SCH (07:30)
[2021-01-04] MEDS ORDERED: Magnesium 2 GM/50 ML 2 GM in Premix Bag 1 BAG IVPB SCH (07:30)
[2021-01-04] MEDS ORDERED: Furosemide 20 MG TAB PO SCH (09:00)
[2021-01-04] MEDS ORDERED: Ubidecarenone 50 MG CAP PO SCH (09:00)
[2021-01-04 09:14] LABS: Troponin I 0.034 ng/mL (< 0.028)
[2021-01-04] MEDS ORDERED: Sodium Chloride 0.9% 1,000 ML IV SCH (09:30)
[2021-01-04] MEDS ORDERED: Aspirin 81 mg Enteric Coated Tablet ONE (10:29)
[2021-01-04] MEDS: Aspirin 81 mg Enteric Coated Tablet PO SCH (10:38)
[2021-01-04] MEDS: Tamsulosin HCl 0.4 MG CAP PO SCH (10:39)
[2021-01-04] MEDS: Senokot S 8.6-50 MG TAB PO SCH ×2 (10:39→21:02)
[2021-01-04] MEDS: Apixaban 2.5 MG TAB PO SCH ×2 (10:40→21:02)
[2021-01-04] MEDS: Polyethylene Glycol 3350 17 GM Packet PO SCH (10:40)
[2021-01-04] MEDS ORDERED: Magnesium 2 GM/50 ML BAG (IN WATER) ONE (10:45)
[2021-01-04 11:22] LABS: Legionella Urinary Ag Negative (Negative); Strep pneumo Urine Ag NEGATIVE (NEGATIVE)
[2021-01-04 11:41] LABS: Troponin I Less than 0.010 ng/mL (< 0.028)
[2021-01-04] MEDS ORDERED: Vancomycin 1 GM in Premix Bag 1 BAG IVPB SCH (12:00)
[2021-01-04 15:14] VITALS: BMI 22.4
[2021-01-04] MEDS: Cefepime 1 GM in Sodium Chloride 0.9% 100 ML IVPB SCH (16:47)
[2021-01-04] MEDS: Mometasone 200 MCG/Formoterol 5 MCG 120 PUFF INHALER INH SCH (19:07)
[2021-01-04 19:22] LABS: SARS-CoV-2 NAA Rapid Test Not Detected (NotDetected)
[2021-01-04] MEDS: Montelukast Sodium 10 mg Tablet PO SCH (21:02)
[2021-01-04] MEDS: Acetaminophen 325 MG TAB PO PRN (21:20)
[2021-01-04] MEDS: Ondansetron PF 4 MG/2 ML Vial IVP PRN (21:23)
[2021-01-04] MEDS: Guaifenesin DM 100-10/5 ML UDCUP PO PRN (22:35)
[2021-01-05] MEDS: Cefepime 1 GM in Sodium Chloride 0.9% 100 ML IVPB SCH ×2 (04:37→17:36)
[2021-01-05] MEDS: Vancomycin 1 GM in Premix Bag 1 BAG IVPB SCH (05:21)
[2021-01-05 05:49] LABS: #Eosinphils 0.2 thou/uL (0.0-0.7); #Lymphocytes 0.7 thou/uL (1.20-3.40); #Monocytes 1.1 thou/uL (0.11-0.59); #Neutrophils 6.9 thou/uL (1.40-6.50); %Basophils 0.1 % (0.0-1.0); %Eosinophils 2.7 % (0.0-10.0); %Lymphocytes 7.6 % (21.0-51.0); %Monocytes 12.4 % (0.0-10.0); %Neutrophils 77.2 % (42.0-75.0); Hemoglobin 8.7 g/dL (14.0-18.0); Mean Corpuscular HGB CONC 30.5 g/dL (32.0-36.0); Mean Corpuscular Hemoglobin 35.8 pg (27.0-31.0); Mean Platelet Volume 7.1 fL (7.4-10.4); Platelet Count 224 thou/uL (130-400); RBC Distribution Width 13.5 % (11.5-14.5); Red Blood Cell (RBC) Count 2.43 mill/uL (4.70-6.10)
[2021-01-05 06:00] LABS: Anion Gap 11 mmol/L (10-20); BUN (Urea Nitrogen) 24 mg/dL (8.4-25.7); Calc. Creatinine Clearance 70 mL/min (70-130); Carbon Dioxide 26 mmol/L (23-31); Chloride 105 mmol/L (98-107); Potassium 3.3 mmol/L (3.5-5.1); Sodium 139 mmol/L (136-145)
[2021-01-05 06:01] LABS: Calcium 8.4 mg/dL (7.8-10.44); Glucose 106 mg/dL (83-110)
[2021-01-05] MEDS ORDERED: Potassium Chloride 20 MEQ TAB PO SCH (08:15)
[2021-01-05] MEDS: Polyethylene Glycol 3350 17 GM Packet PO SCH (09:12)
[2021-01-05] MEDS: Acetaminophen 325 MG TAB PO PRN (09:12)
[2021-01-05] MEDS: Senokot S 8.6-50 MG TAB PO SCH ×2 (09:12→20:43)
[2021-01-05] MEDS: Tamsulosin HCl 0.4 MG CAP PO SCH (09:13)
[2021-01-05] MEDS: Guaifenesin DM 100-10/5 ML UDCUP PO PRN ×2 (09:13→17:36)
[2021-01-05] MEDS: Apixaban 2.5 MG TAB PO SCH ×2 (09:13→20:43)
[2021-01-05] MEDS: Aspirin 81 mg Enteric Coated Tablet PO SCH (09:13)
[2021-01-05] MEDS: Potassium Chloride 10 MEQ TAB PO SCH (09:13)
[2021-01-05] MEDS: Mometasone 200 MCG/Formoterol 5 MCG 120 PUFF INHALER INH SCH ×2 (09:34→19:24)
[2021-01-05] MEDS ORDERED: Bisacodyl 5 MG TAB PO SCH (10:45)
[2021-01-05] MEDS: Ondansetron ODT 4 MG TAB PO PRN (12:05)
[2021-01-05] MEDS ORDERED: Artificial Tear Sol 15 ML BOT EA EYE PRN (18:27)
[2021-01-05] MEDS: Ondansetron PF 4 MG/2 ML Vial IVP PRN (20:43)
[2021-01-05] MEDS: Montelukast Sodium 10 mg Tablet PO SCH (20:43)
[2021-01-05] MEDS: Atorvastatin Calcium 20 MG TAB PO SCH (20:44)
[2021-01-06] MEDS: Acetaminophen 325 MG TAB PO PRN ×2 (02:51→20:38)
[2021-01-06] MEDS: Cefepime 1 GM in Sodium Chloride 0.9% 100 ML IVPB SCH ×2 (04:55→15:12)
[2021-01-06] MEDS: Levothyroxine Sodium 25 MCG TAB PO SCH (04:55)
[2021-01-06 05:52] LABS: #Eosinphils 0.2 thou/uL (0.0-0.7); #Lymphocytes 0.7 thou/uL (1.20-3.40); #Monocytes 0.8 thou/uL (0.11-0.59); #Neutrophils 8.4 thou/uL (1.40-6.50); %Basophils 0.1 % (0.0-1.0); %Eosinophils 2.2 % (0.0-10.0); %Lymphocytes 6.7 % (21.0-51.0); %Monocytes 7.7 % (0.0-10.0); %Neutrophils 83.3 % (42.0-75.0); Hemoglobin 8.3 g/dL (14.0-18.0); Mean Corpuscular HGB CONC 31.5 g/dL (32.0-36.0); Mean Corpuscular Hemoglobin 36.5 pg (27.0-31.0); Mean Platelet Volume 7.2 fL (7.4-10.4); Platelet Count 250 thou/uL (130-400); RBC Distribution Width 13.7 % (11.5-14.5); Red Blood Cell (RBC) Count 2.27 mill/uL (4.70-6.10)
[2021-01-06 06:10] LABS: Vancomycin, Trough 6.1 ug/mL
[2021-01-06 06:12] LABS: Anion Gap 9 mmol/L (10-20); BUN (Urea Nitrogen) 21 mg/dL (8.4-25.7); Calc. Creatinine Clearance 73 mL/min (70-130); Calcium 8.6 mg/dL (7.8-10.44); Carbon Dioxide 30 mmol/L (23-31); Chloride 104 mmol/L (98-107); Glucose 120 mg/dL (83-110); Magnesium 2.1 mg/dL (1.6-2.6); Potassium 4.1 mmol/L (3.5-5.1); Sodium 139 mmol/L (136-145)
[2021-01-06] MEDS: Vancomycin 1 GM in Premix Bag 1 BAG IVPB SCH (07:08)
[2021-01-06] MEDS: Mometasone 200 MCG/Formoterol 5 MCG 120 PUFF INHALER INH SCH ×2 (07:25→19:40)
[2021-01-06] MEDS: Tamsulosin HCl 0.4 MG CAP PO SCH (09:00)
[2021-01-06] MEDS: Potassium Chloride 10 MEQ TAB PO SCH (09:00)
[2021-01-06] MEDS: Aspirin 81 mg Enteric Coated Tablet PO SCH (09:00)
[2021-01-06] MEDS: Polyethylene Glycol 3350 17 GM Packet PO SCH (09:01)
[2021-01-06] MEDS: Apixaban 2.5 MG TAB PO SCH ×2 (09:01→20:39)
[2021-01-06] MEDS: Senokot S 8.6-50 MG TAB PO SCH ×2 (09:01→20:39)
[2021-01-06] MEDS: Cyanocobalamin (Vitamin B-12) 1,000 MCG TAB PO SCH (09:01)
[2021-01-06] MEDS: Ondansetron PF 4 MG/2 ML Vial IVP PRN ×2 (10:23→16:21)
[2021-01-06] MEDS: Guaifenesin DM 100-10/5 ML UDCUP PO PRN (14:05)
[2021-01-06] MEDS ORDERED: Vancomycin 1 GM in Premix Bag 1 BAG IVPB SCH (18:00)
[2021-01-06] MEDS: Ondansetron ODT 4 MG TAB PO PRN (20:37)
[2021-01-06] MEDS: Montelukast Sodium 10 mg Tablet PO SCH (20:39)
[2021-01-06] MEDS: Atorvastatin Calcium 20 MG TAB PO SCH (20:39)
[2021-01-07 04:32] LABS: #Eosinphils 0.1 thou/uL (0.0-0.7); #Lymphocytes 0.4 thou/uL (1.20-3.40); #Monocytes 0.9 thou/uL (0.11-0.59); #Neutrophils 11.3 thou/uL (1.40-6.50); %Eosinophils 0.4 % (0.0-10.0); %Lymphocytes 3.3 % (21.0-51.0); %Monocytes 7.1 % (0.0-10.0); %Neutrophils 89.2 % (42.0-75.0); Hemoglobin 8.5 g/dL (14.0-18.0); Mean Corpuscular HGB CONC 31.1 g/dL (32.0-36.0); Mean Corpuscular Hemoglobin 36.9 pg (27.0-31.0); Mean Platelet Volume 7.2 fL (7.4-10.4); Platelet Count 306 thou/uL (130-400); RBC Distribution Width 13.6 % (11.5-14.5); Red Blood Cell (RBC) Count 2.29 mill/uL (4.70-6.10); White Blood Cell (WBC) Count 12.6 thou/uL (4.8-10.8)
[2021-01-07 04:53] LABS: Anion Gap 13 mmol/L (10-20); BUN (Urea Nitrogen) 22 mg/dL (8.4-25.7); Calc. Creatinine Clearance 77 mL/min (70-130); Calcium 8.7 mg/dL (7.8-10.44); Carbon Dioxide 27 mmol/L (23-31); Chloride 99 mmol/L (98-107); Glucose 156 mg/dL (83-110); Potassium 5.1 mmol/L (3.5-5.1); Sodium 134 mmol/L (136-145)
[2021-01-07] MEDS: Cefepime 1 GM in Sodium Chloride 0.9% 100 ML IVPB SCH ×2 (05:34→17:33)
[2021-01-07] MEDS: Levothyroxine Sodium 25 MCG TAB PO SCH (05:34)
[2021-01-07] MEDS ORDERED: Furosemide 40 MG/4 ML VIAL ONE (07:51)
[2021-01-07 07:56] LABS: Actual Bicarbonate (HCO3a) 34.4 mEq/L (22-28); Base Excess (BEa) 4.6 mEq/L (-2.0 to +3.0); Calcium, Ionized (arterial) 1.27 mmol/L (1.12-1.30); Carboxyhemoglobin (COHb) 1.5 gm% (0.0-3.0); O2 Tension (PaO2), arterial 62.8 mmHg (> 60.0); Potassium - ABG Lab 4.86 mmol/L (3.70-5.30)
[2021-01-07] MEDS ORDERED: methylPREDNISolone Sod Succ/PF 125 MG/2 ML VIAL IVP SCH ×3 (08:00→18:00)
[2021-01-07] MEDS ORDERED: Furosemide 40 MG/4 ML VIAL SLOW IVP SCH (08:00)
[2021-01-07 08:05] LABS: ALV-art Gradient 79.005 mmHg (0-20); CO2 Tension 91.9 mmHg (35.0-45.0); Puncture Site LRA; pH, Arterial 7.19 (7.35-7.45)
[2021-01-07] MEDS: Mometasone 200 MCG/Formoterol 5 MCG 120 PUFF INHALER INH SCH ×2 (08:06→18:59)
[2021-01-07] MEDS ORDERED: Morphine 4 MG/ML VIAL SLOW IVP SCH (08:15)
[2021-01-07] MEDS ORDERED: Bacteriostatic Water 30 ML VIAL FS PRN ×2 (08:15→14:45)
[2021-01-07] MEDS: Potassium Chloride 10 MEQ TAB PO SCH (09:53)
[2021-01-07] MEDS: Senokot S 8.6-50 MG TAB PO SCH ×2 (09:59→20:56)
[2021-01-07] MEDS: Apixaban 2.5 MG TAB PO SCH ×2 (09:59→20:56)
[2021-01-07] MEDS: Aspirin 81 mg Enteric Coated Tablet PO SCH (09:59)
[2021-01-07] MEDS: Polyethylene Glycol 3350 17 GM Packet PO SCH (09:59)
[2021-01-07] MEDS: Cyanocobalamin (Vitamin B-12) 1,000 MCG TAB PO SCH (09:59)
[2021-01-07] MEDS: Tamsulosin HCl 0.4 MG CAP PO SCH (10:00)
[2021-01-07] MEDS: methylPREDNISolone Sod Succ 40 MG VIAL IVP SCH ×2 (17:32→23:43)
[2021-01-07] MEDS: Ondansetron PF 4 MG/2 ML Vial IVP PRN (17:33)
[2021-01-07] MEDS: Morphine 2 MG/ML VIAL SLOW IVP PRN ×3 (17:33→21:18)
[2021-01-07] MEDS: Montelukast Sodium 10 mg Tablet PO SCH (20:56)
[2021-01-07] MEDS: Atorvastatin Calcium 20 MG TAB PO SCH (20:56)
[2021-01-08] MEDS: Morphine 2 MG/ML VIAL SLOW IVP PRN (01:25)
[2021-01-08 04:36] LABS: #Lymphocytes 0.4 thou/uL (1.20-3.40); #Monocytes 0.1 thou/uL (0.11-0.59); #Neutrophils 6.9 thou/uL (1.40-6.50); %Basophils 0.2 % (0.0-1.0); %Eosinophils 0.2 % (0.0-10.0); %Lymphocytes 4.7 % (21.0-51.0); %Neutrophils 93.8 % (42.0-75.0); Hemoglobin 8.9 g/dL (14.0-18.0); Mean Corpuscular HGB CONC 30.4 g/dL (32.0-36.0); Mean Corpuscular Hemoglobin 35.5 pg (27.0-31.0); Mean Platelet Volume 7.3 fL (7.4-10.4); Platelet Count 315 thou/uL (130-400); RBC Distribution Width 13.6 % (11.5-14.5); Red Blood Cell (RBC) Count 2.51 mill/uL (4.70-6.10); White Blood Cell (WBC) Count 7.4 thou/uL (4.8-10.8)
[2021-01-08 04:58] LABS: ALT (SGPT) 19 U/L (8-55); AST (SGOT) 14 U/L (5-34); Albumin 3.3 g/dL (3.4-4.8); Alkaline Phosphatase 80 U/L (40-110); Anion Gap 12 mmol/L (10-20); BUN (Urea Nitrogen) 33 mg/dL (8.4-25.7); Bilirubin, Total 0.7 mg/dL (0.2-1.2); Calc. Creatinine Clearance 67 mL/min (70-130); Calcium 9.1 mg/dL (7.8-10.44); Carbon Dioxide 33 mmol/L (23-31); Chloride 98 mmol/L (98-107); Globulin 2.6 g/dL (2.4-3.5); Glucose 140 mg/dL (83-110); Magnesium 2.3 mg/dL (1.6-2.6); Potassium 5.6 mmol/L (3.5-5.1); Protein, Total 5.9 g/dL (5.8-8.1); Sodium 137 mmol/L (136-145)
[2021-01-08] MEDS: Cefepime 1 GM in Sodium Chloride 0.9% 100 ML IVPB SCH (05:33)
[2021-01-08] MEDS: methylPREDNISolone Sod Succ 40 MG VIAL IVP SCH ×2 (05:33→13:44)
[2021-01-08] MEDS: Levothyroxine Sodium 25 MCG TAB PO SCH (05:34)
[2021-01-08] MEDS ORDERED: Dextrose 25% Abboject 10 ML SYRINGE SLOW IVP SCH (07:59)
[2021-01-08] MEDS ORDERED: Insulin Regular 300 UNITS/3 ML VIAL IVP SCH (08:00)
[2021-01-08] MEDS ORDERED: Furosemide 40 MG/4 ML VIAL SLOW IVP SCH (09:00)
[2021-01-08] MEDS: Potassium Chloride 10 MEQ TAB PO SCH (09:41)
[2021-01-08] MEDS: Aspirin 81 mg Enteric Coated Tablet PO SCH (09:42)
[2021-01-08] MEDS: Apixaban 2.5 MG TAB PO SCH (09:42)
[2021-01-08] MEDS: Cyanocobalamin (Vitamin B-12) 1,000 MCG TAB PO SCH (09:42)
[2021-01-08] MEDS: Tamsulosin HCl 0.4 MG CAP PO SCH (09:43)
[2021-01-08] MEDS: Senokot S 8.6-50 MG TAB PO SCH (09:43)
[2021-01-08] MEDS: Polyethylene Glycol 3350 17 GM Packet PO SCH (09:43)
[2021-01-08] MEDS: Mometasone 200 MCG/Formoterol 5 MCG 120 PUFF INHALER INH SCH (10:09)
[2021-01-08] MEDS ORDERED: Dextrose 50% Abboject 50 ML SYRINGE SLOW IVP SCH (10:30)
[2021-01-08 11:46] VITALS: BP 118/58; TEMP 98.8
[2021-01-08 17:25] LABS: Anion Gap 9 mmol/L (10-20); BUN (Urea Nitrogen) 40 mg/dL (8.4-25.7); Calc. Creatinine Clearance 57 mL/min (70-130); Calcium 9.1 mg/dL (7.8-10.44); Carbon Dioxide 36 mmol/L (23-31); Chloride 98 mmol/L (98-107); Glucose 139 mg/dL (83-110); Potassium 4.7 mmol/L (3.5-5.1); Sodium 138 mmol/L (136-145)
[2021-01-08 23:08] LABS: Mycoplasma pneumoniae IgG AB Less than 100 U/mL (0-99); Mycoplasma pneumoniae IgM AB Less than 770 U/mL (0-769)
== END 2021-01-08 13:07 | disposition hospice, inpatient (51) | DRG 871 ==
LOC: SUATTDRO 01:50 → ERS 01:50 → ERHOLD 05:38 → 2NO 14:17 → OBSVTOIN 01-05 15:51
PROVIDERS: ADMIT Internal Medicine; ATTEND Internal Medicine
DX: A41.9 Sepsis, unspecified organism (principal); J96.91 Respiratory failure, unspecified with hypoxia; J96.92 Respiratory failure, unspecified with hypercapnia; I50.32 Chronic diastolic (congestive) heart failure; N39.0 Urinary tract infection, site not specified; Z66 Do not resuscitate; Z20.822 Contact with and (suspected) exposure to COVID-19; N40.0 Benign prostatic hyperplasia without lower urinary tract symptoms; I35.0 Nonrheumatic aortic (valve) stenosis; E87.6 Hypokalemia; J84.10 Pulmonary fibrosis, unspecified; I25.10 Atherosclerotic heart disease of native coronary artery without angina pectoris; I11.0 Hypertensive heart disease with heart failure; E78.5 Hyperlipidemia, unspecified; I48.0 Paroxysmal atrial fibrillation; K21.9 Gastro-esophageal reflux disease without esophagitis; E03.9 Hypothyroidism, unspecified; D53.9 Nutritional anemia, unspecified; K59.00 Constipation, unspecified
CPT/HCPCS: 0240U; 36415; 36416; 36600; 71045; 74176; 80048; 80053; 80202; 81003; 82553; 82805; 83605; 83690; 83735; 83880; 84145; 84484; 85025; 85610; 85730; 86850; 86900; 86901; 87040; 87077; 87086; 87186; 87449; 87899; 93005; 94640; 94660; 94760; 96365; 96366; 96367; 96375; 96376; G0378; J0692; J0696; J1200; J1815; J1940; J2270; J2405; J2920; J2930; J3370; J3475; J3490; J7050; J7620; Q0162; S0028

== ENCOUNTER 2021-01-08 13:16 | Inpatient (IN) | payer OTHER ==
[2021-01-08] MEDS ORDERED: Morphine 2 MG/ML VIAL SLOW IVP PRN (14:24)
[2021-01-08] MEDS ORDERED: Lorazepam 2 MG/ML VIAL SLOW IVP PRN (14:26)
[2021-01-08] MEDS ORDERED: Acetaminophen 650 MG Suppository PR PRN (14:26)
[2021-01-08] MEDS ORDERED: Scopolamine 1.5 mg/72 hour Patch TD SCH (14:30)
[2021-01-08] MEDS: Lorazepam 2 MG/ML VIAL SLOW IVP SCH ×2 (19:31→22:08)
[2021-01-08] MEDS: Morphine 2 MG/ML VIAL SLOW IVP SCH ×2 (19:31→22:06)
[2021-01-09] MEDS: Morphine 2 MG/ML VIAL SLOW IVP SCH ×6 (01:09→20:58)
[2021-01-09] MEDS: Lorazepam 2 MG/ML VIAL SLOW IVP SCH ×6 (01:09→20:57)
[2021-01-09 20:00] VITALS: BP 131/56; TEMP 97.7
[2021-01-10] MEDS: Lorazepam 2 MG/ML VIAL SLOW IVP SCH ×2 (01:11→05:08)
[2021-01-10] MEDS: Morphine 2 MG/ML VIAL SLOW IVP SCH ×2 (01:13→05:08)
== END 2021-01-10 10:37 | disposition expired | DRG 951 ==
LOC: 2NO 13:16 → ONC 20:38
PROVIDERS: ADMIT Family Medicine; ATTEND Family Medicine
DX: Z51.5 Encounter for palliative care (principal)
CPT/HCPCS: J2060; J2270